=== PATIENT | female | born 1990 | race Caucasian/White ===

== ENCOUNTER 2016-11-26 00:08 | Emergency (ER) | payer MEDICAID, OTHER ==
[~2016-11-26] VITALS: Ht 170.2 cm; Wt 131.5 kg
[~2016-11-26 00:08] MED LIST: BUPR150SR PO; RISP2 PO
[2016-11-26 00:50] LABS: APPEARANCE,URINE CLOUDY (CLEAR); GLUCOSE, URINE (UA) NEGATIVE (NEGATIVE); KETONES,URINE NEGATIVE (NEGATIVE); LEUKOCYTE ESTERASE ,URINE SMALL (NEGATIVE); OCCULT BLOOD,URINE NEGATIVE (NEGATIVE); PROTEIN,URINE NEGATIVE (NEGATIVE)
[2016-11-26 00:54] LABS: RBC,URINE 0-2 /HPF (0-2); SQUAMOUS EPITHELIAL CELL,UR Moderate /LPF (None Seen)
[2016-11-26 02:34] VITALS: BP 110/68
[2016-11-26] MEDS ORDERED: CefTRIAXone SODIUM 1 GM/VIAL IM ONE (02:45)
[2016-11-26] MEDS ORDERED: LIDOCAINE HCL/PF 1% 2 ML VIAL IM ONE (02:45)
[2016-11-26] MEDS ORDERED: AZITHROMYCIN 250 MG TABLET PO ONE (02:45)
== END 2016-11-26 03:05 | disposition home or self-care (01) ==
LOC: EMS 00:09
DX: N39.0 Urinary tract infection, site not specified (principal); N76.0 Acute vaginitis; J45.909 Unspecified asthma, uncomplicated; F12.90 Cannabis use, unspecified, uncomplicated; F15.90 Other stimulant use, unspecified, uncomplicated; F19.90 Other psychoactive substance use, unspecified, uncomplicated; Z87.891 Personal history of nicotine dependence; Z88.8 Allergy status to other drugs, medicaments and biological substances; Z88.6 Allergy status to analgesic agent
CPT/HCPCS: 81001; 84703; 87077; 87086; 87186; 96372; 99284; J0696; J3490; 99283

== ENCOUNTER 2016-12-27 01:01 | Emergency (ER) | payer OTHER ==
[~2016-12-27] VITALS: Ht 170.2 cm; Wt 134.6 kg
[2016-12-27 01:03] VITALS: BP 122/77
== END 2016-12-27 01:50 | disposition left against medical advice (07) ==
LOC: EMS 01:02
DX: J45.901 Unspecified asthma with (acute) exacerbation (principal); F12.90 Cannabis use, unspecified, uncomplicated; F15.90 Other stimulant use, unspecified, uncomplicated; Z87.891 Personal history of nicotine dependence; Z53.21 Procedure and treatment not carried out due to patient leaving prior to being seen by health care provider

== ENCOUNTER 2016-12-29 15:54 | Inpatient (IN) | payer MEDICAID, OTHER ==
[~2016-12-29] VITALS: Ht 170.2 cm; Wt 134.9 kg
[2016-12-29] MEDS ORDERED: [UNRECOGNIZED DRUG - CODE] PO (16:18)
[2016-12-29] MEDS ORDERED: BUSP10TA23 PO (16:18)
[2016-12-29] MEDS ORDERED: BREX1TAB PO (16:18)
[2016-12-29] MEDS ORDERED: SODIUM CHLORIDE 0.9% 1,000 ML IV ONE (16:30)
[2016-12-29 16:54] LABS: BASOPHILS % (AUTO) 0.4 % (0.0-2.0); EOSINOPHILS % (AUTO) 2.5 % (1.0-6.0); HEMOGLOBIN 12.3 g/dL (12.0-16.0); LYMPHOCYTES # (AUTO) 1.5 K/uL (1.0-4.8); LYMPHOCYTES % (AUTO) 18.7 % (22.0-44.0); MEAN CORPUSCULAR HEMOGLOBIN 27.4 pg (26.0-34.0); MEAN CORPUSCULAR HGB CONC 34.1 G/dL (31.0-37.0); MEAN CORPUSCULAR VOLUME 80 fL (80-100); MONOCYTES # (AUTO) 0.8 K/uL (0.1-1.0); MONOCYTES % (AUTO) 10.2 % (2.0-9.0); NEUTROPHILS # (AUTO) 5.6 K/uL (1.8-7.7); NEUTROPHILS % (AUTO) 68.2 % (40.0-70.0); PLATELET COUNT (AUTO) 174 K/uL (150-450); RED BLOOD CELL COUNT(AUTO) 4.48 MIL/uL (4.00-5.20); RED CELL DISTRIBUTION WIDTH 15.7 % (11.5-14.5); WHITE BLOOD COUNT (AUTO) 8.1 K/uL (4.5-11.0)
[2016-12-29 17:06] LABS: ANION GAP 7 mmol/L (8-16); CALCIUM, TOTAL 8.6 mg/dL (8.8-10.5); CARBON DIOXIDE 26 mmol/L (22-29); CHLORIDE 106 mmol/L (98-107); CREATININE 1.24 mg/dL (0.60-1.30); GLOMERULAR FILTR. RATE CALC 52 mL/min (>60); POTASSIUM 3.9 mmol/L (3.5-5.1); SODIUM SERUM 139 mmol/L (136-145); UREA NITROGEN, BLOOD 17 mg/dL (7-18)
[2016-12-29 17:12] LABS: ALANINE AMINOTRANSFERASE 36 U/L (12-78); ALBUMIN 3.5 g/dL (3.4-5.0); ASPARTATE AMINOTRANSFERASE 21 U/L (15-37); BILIRUBIN,TOTAL 0.3 mg/dL (0.1-1.0); TOTAL PROTEIN, SERUM 6.9 g/dL (6.4-8.2)
[2016-12-29 17:23] LABS: SALICYLATE < 2.8 mg/dL (2.8-20.0)
[2016-12-29 17:26] LABS: ACETAMINOPHEN < 2 mcg/mL (10-30)
[2016-12-29] MEDS ORDERED: HALOPERIDOL 5 MG TABLET PO PRN (19:15)
[2016-12-29 19:23] LABS: APPEARANCE,URINE CLEAR (CLEAR); GLUCOSE, URINE (UA) NEGATIVE (NEGATIVE); KETONES,URINE NEGATIVE (NEGATIVE); LEUKOCYTE ESTERASE ,URINE NEGATIVE (NEGATIVE); OCCULT BLOOD,URINE NEGATIVE (NEGATIVE); PROTEIN,URINE NEGATIVE (NEGATIVE)
[2016-12-29 19:24] LABS: ADD UA MICROSCOPIC NO
[2016-12-29] MEDS ORDERED: ALBUTEROL SULFATE 5 MG/ML 20 ML NEB SOLN [BULK] NEB ONE (21:30)
[2016-12-29] MEDS ORDERED: IPRATROPIUM BROMIDE 0.5 MG/2.5 ML NEB SOLUTION NEB ONE (21:30)
[2016-12-29] MEDS ORDERED: 0.9% SODIUM CHLORIDE 5 ML NEB SOLUTION NEB ONE (21:33)
[2016-12-30] MEDS: ZOLPIDEM TARTRATE 10 MG TABLET PO PRN ×2 (00:04→21:56)
[2016-12-30 00:13] VITALS: BP 115/72
[2016-12-30 08:49] LABS: CHOL/HDL RATIO 3.8 (3.9-5.7); THYROID STIMULATING HORMONE 2.75 uIU/mL (0.36-3.74)
[2016-12-30 08:59] VITALS: BP 117/61
[2016-12-30] MEDS: LORazepam 2 MG TABLET PO PRN ×2 (16:15→20:30)
[2016-12-30 16:55] VITALS: BP 127/87
[2016-12-30] MEDS: OLANZapine 5 MG TABLET PO SCH (20:29)
[2016-12-31 02:42] VITALS: BP 122/88
[2016-12-31] MEDS: LORazepam 2 MG TABLET PO PRN ×3 (02:43→22:43)
[2016-12-31] MEDS: FLUoxetine HCL 20 MG CAPSULE PO SCH (08:45)
[2016-12-31] MEDS: FLUTICASONE/VILANTEROL 100-25 MCG/INH INHALER [14] IH SCH (08:45)
[2016-12-31 09:13] VITALS: BP 110/68
[2016-12-31] MEDS ORDERED: ALBUTEROL SULFATE HFA 90 MCG/PUFF 8 GM INHALER IH PRN (10:45)
[2016-12-31 16:18] VITALS: BP 121/72
[2016-12-31] MEDS: OLANZapine 5 MG TABLET PO SCH (20:28)
[2016-12-31] MEDS: ZOLPIDEM TARTRATE 10 MG TABLET PO PRN (20:28)
[2017-01-01 01:06] VITALS: BP 99/60
[2017-01-01 02:50] VITALS: BP 117/78
[2017-01-01] MEDS: LORazepam 2 MG TABLET PO PRN ×2 (03:06→11:40)
[2017-01-01 08:19] VITALS: BP 114/78
[2017-01-01] MEDS: FLUoxetine HCL 20 MG CAPSULE PO SCH (09:00)
[2017-01-01] MEDS: FLUTICASONE/VILANTEROL 100-25 MCG/INH INHALER [14] IH SCH (09:01)
[2017-01-01] MEDS ORDERED: FLUO-191 PO (13:24)
[2017-01-01] MEDS ORDERED: FLUT1AER IH (13:24)
[2017-01-01] MEDS ORDERED: OLAN5TAB2 PO (13:24)
== END 2017-01-01 20:50 | disposition home or self-care (01) | DRG 751 ==
LOC: SDS 15:55 → B2S 21:47
PROVIDERS: ADMIT Psychiatry & Neurology Child & Adolescent Psychiatry; ATTEND Psychiatry & Neurology Child & Adolescent Psychiatry
DX: F33.2 Major depressive disorder, recurrent severe without psychotic features (principal); R45.851 Suicidal ideations; F12.90 Cannabis use, unspecified, uncomplicated; J45.909 Unspecified asthma, uncomplicated; F15.90 Other stimulant use, unspecified, uncomplicated; F60.3 Borderline personality disorder; R45.87 Impulsiveness; F19.10 Other psychoactive substance abuse, uncomplicated; Z79.899 Other long term (current) drug therapy; Z90.89 Acquired absence of other organs; Z87.891 Personal history of nicotine dependence; Z88.8 Allergy status to other drugs, medicaments and biological substances; Z83.3 Family history of diabetes mellitus; Z81.8 Family history of other mental and behavioral disorders
CPT/HCPCS: 84436; 84439; 84443; 93005; 94640; 96360; 96361; 99285; G0480; G0481; J3535

== ENCOUNTER 2017-05-09 06:59 | Inpatient (IN) | payer MEDICAID, OTHER ==
[~2017-05-09] VITALS: Ht 166.4 cm; Wt 138.3 kg
[~2017-05-09 06:59] MED LIST changes: -BUPR150SR PO; +FLUO-191 PO; -RISP2 PO
[2017-05-09] MEDS ORDERED: BUPR75 PO (07:03)
[2017-05-09] MEDS ORDERED: TRAZ-144 PO (07:03)
[2017-05-09] MEDS ORDERED: BUPR-93 PO (07:06)
[2017-05-09] MEDS ORDERED: TRAZ-147 PO (07:06)
[2017-05-09] MEDS ORDERED: LORazepam 2 MG/ML VIAL ONE (07:21)
[2017-05-09] MEDS ORDERED: SUCCINYLCHOLINE CHLORIDE 20 MG/ML 10 ML VIAL ONE (07:21)
[2017-05-09] MEDS ORDERED: RAPID SEQUENCE KIT [RSI] 1 EACH KIT ONE ×2 (07:21)
[2017-05-09] MEDS ORDERED: SODIUM CHLORIDE 0.9% 1,000 ML IV ONE ×3 (07:30→10:00)
[2017-05-09] MEDS ORDERED: LORazepam 2 MG/ML VIAL IVP ONE (07:30)
[2017-05-09 07:32] LABS: GLUCOSE COMMENT 1 Doctor Notified; GLUCOSE,POINT OF CARE 118 MG/DL (70-110)
[2017-05-09 07:36] LABS: BASOPHILS % (AUTO) 0.4 % (0.0-2.0); EOSINOPHILS % (AUTO) 0.4 % (1.0-6.0); HEMATOCRIT 38.3 % (36-46); HEMOGLOBIN 12.9 g/dL (12.0-16.0); LYMPHOCYTES # (AUTO) 2.4 K/uL (1.0-4.8); LYMPHOCYTES % (AUTO) 21.4 % (22.0-44.0); MEAN CORPUSCULAR HEMOGLOBIN 28.4 pg (26.0-34.0); MEAN CORPUSCULAR HGB CONC 33.7 G/dL (31.0-37.0); MEAN CORPUSCULAR VOLUME 84 fL (80-100); MONOCYTES # (AUTO) 1.4 K/uL (0.1-1.0); MONOCYTES % (AUTO) 12.7 % (2.0-9.0); NEUTROPHILS # (AUTO) 7.4 K/uL (1.8-7.7); NEUTROPHILS % (AUTO) 65.1 % (40.0-70.0); PLATELET COUNT (AUTO) 226 K/uL (150-450); RED BLOOD CELL COUNT(AUTO) 4.55 MIL/uL (4.00-5.20); RED CELL DISTRIBUTION WIDTH 13.7 % (11.5-14.5); WHITE BLOOD COUNT (AUTO) 11.3 K/uL (4.5-11.0)
[2017-05-09 07:45] LABS: ANION GAP 20 mmol/L (8-16); CALCIUM, TOTAL 9.7 mg/dL (8.8-10.5); CARBON DIOXIDE 21 mmol/L (22-29); CHLORIDE 108 mmol/L (98-107); CREATININE 1.39 mg/dL (0.60-1.30); GLOMERULAR FILTR. RATE CALC 45 mL/min (>60); POTASSIUM 3.6 mmol/L (3.5-5.1); SODIUM SERUM 149 mmol/L (136-145); UREA NITROGEN, BLOOD 16 mg/dL (7-18)
[2017-05-09 07:51] LABS: ALANINE AMINOTRANSFERASE 34 U/L (12-78); ALBUMIN 4.2 g/dL (3.4-5.0); ASPARTATE AMINOTRANSFERASE 30 U/L (15-37); BILIRUBIN,TOTAL 0.4 mg/dL (0.1-1.0); TOTAL PROTEIN, SERUM 8.5 g/dL (6.4-8.2)
[2017-05-09 07:52] LABS: SALICYLATE < 2.8 mg/dL (2.8-20.0)
[2017-05-09 08:02] LABS: ACETAMINOPHEN < 2 mcg/mL (10-30)
[2017-05-09 09:27] LABS: APPEARANCE,URINE CLEAR (CLEAR); GLUCOSE, URINE (UA) NEGATIVE (NEGATIVE); KETONES,URINE NEGATIVE (NEGATIVE); LEUKOCYTE ESTERASE ,URINE NEGATIVE (NEGATIVE); OCCULT BLOOD,URINE NEGATIVE (NEGATIVE); PH,URINE 5.5 (5.0-8.0); PROTEIN,URINE NEGATIVE (NEGATIVE)
[2017-05-09 09:31] LABS: RBC,URINE None Seen /HPF (0-2)
[2017-05-09 09:32] LABS: SQUAMOUS EPITHELIAL CELL,UR Few /LPF (None Seen); WBC,URINE 0-2 /HPF (0-5)
[2017-05-09] MEDS ORDERED: ONDANSETRON HCL 4 MG/2 ML VIAL IVP PRN ×2 (10:00→10:30)
[2017-05-09] MEDS ORDERED: 0.9% SODIUM CHLORIDE 10 ML SYRINGE IVP PRN (10:00)
[2017-05-09] MEDS ORDERED: ACETAMINOPHEN 325 MG TABLET PO PRN ×2 (10:00→10:30)
[2017-05-09] MEDS ORDERED: MAGNESIUM HYDROXIDE SUSPENSION 30 ML UDCUP PO PRN (10:30)
[2017-05-09] MEDS ORDERED: MORPHINE SULFATE 2 MG/ML SYRINGE IVP PRN (10:30)
[2017-05-09] MEDS ORDERED: HYDROCODONE/ACETAMINOPHEN 5-325 MG TABLET PO PRN (10:30)
[2017-05-09] MEDS ORDERED: BISACODYL 10 MG RECTAL RECTAL SUPPOSITORY PR PRN (10:30)
[2017-05-09] MEDS ORDERED: LORazepam 2 MG/ML VIAL IM PRN (10:30)
[2017-05-09] MEDS ORDERED: MAGNESIUM SULFATE 2 GM, MVI, ADULT NO.1 WITH VIT K 10 ML, THIAMINE HCL 100 MG, FOLIC AC... IV ONE ×5 (10:30)
[2017-05-09 12:57] VITALS: BP 106/60
[2017-05-09] MEDS ORDERED: PNEUMOCOCCAL VACCINE POLYVALENT 0.5 ML VIAL [PPSV23] IM ONE (13:30)
[2017-05-09] MEDS ORDERED: INFLUENZA VIRUS VACCINE QVS 2017-18 (3YR+)/PF 60 MCG/0.5 ML SYRINGE IM ONE (13:30)
[2017-05-09] MEDS: HEPARIN SODIUM,PORCINE 5,000 UNITS/ML VIAL SQ SCH ×2 (15:10→23:41)
[2017-05-09 15:56] VITALS: BP 101/62
[2017-05-09 19:52] LABS: GLUCOSE,POINT OF CARE 111 MG/DL (70-110)
[2017-05-09 20:10] VITALS: BP 105/55
[2017-05-09] MEDS: ZOLPIDEM TARTRATE 5 MG TABLET PO PRN (21:11)
[2017-05-09] MEDS: DOCUSATE SODIUM 100 MG CAPSULE PO SCH (21:11)
[2017-05-10] VITALS (7 sets, daily range): BP systolic 106–122; BP diastolic 52–72
[2017-05-10 05:55] LABS: BASOPHILS % (AUTO) 0.2 % (0.0-2.0); EOSINOPHILS % (AUTO) 0.4 % (1.0-6.0); HEMATOCRIT 32.3 % (36-46); LYMPHOCYTES # (AUTO) 1.4 K/uL (1.0-4.8); LYMPHOCYTES % (AUTO) 18.3 % (22.0-44.0); MEAN CORPUSCULAR HEMOGLOBIN 28.5 pg (26.0-34.0); MEAN CORPUSCULAR VOLUME 84 fL (80-100); MONOCYTES # (AUTO) 0.8 K/uL (0.1-1.0); MONOCYTES % (AUTO) 9.9 % (2.0-9.0); NEUTROPHILS # (AUTO) 5.5 K/uL (1.8-7.7); NEUTROPHILS % (AUTO) 71.2 % (40.0-70.0); PLATELET COUNT (AUTO) 184 K/uL (150-450); RED BLOOD CELL COUNT(AUTO) 3.86 MIL/uL (4.00-5.20); RED CELL DISTRIBUTION WIDTH 13.6 % (11.5-14.5); WHITE BLOOD COUNT (AUTO) 7.8 K/uL (4.5-11.0)
[2017-05-10 05:57] LABS: ANION GAP 7 mmol/L (8-16); CALCIUM, TOTAL 8.1 mg/dL (8.8-10.5); CARBON DIOXIDE 24 mmol/L (22-29); CHLORIDE 108 mmol/L (98-107); CREATININE 0.95 mg/dL (0.60-1.30); GLOMERULAR FILTR. RATE CALC > 60 mL/min (>60); POTASSIUM 3.5 mmol/L (3.5-5.1); SODIUM SERUM 139 mmol/L (136-145); UREA NITROGEN, BLOOD 9 mg/dL (7-18)
[2017-05-10] MEDS: DOCUSATE SODIUM 100 MG CAPSULE PO SCH ×2 (07:48→20:56)
[2017-05-10] MEDS: PANTOPRAZOLE SODIUM 40 MG DR TABLET PO SCH (07:48)
[2017-05-10] MEDS: HEPARIN SODIUM,PORCINE 5,000 UNITS/ML VIAL SQ SCH ×3 (07:50→23:37)
[2017-05-10] MEDS: ZOLPIDEM TARTRATE 5 MG TABLET PO PRN (20:56)
[2017-05-11 03:28] VITALS: BP 110/57
[2017-05-11 06:36] LABS: BASOPHILS % (AUTO) 0.4 % (0.0-2.0); EOSINOPHILS % (AUTO) 1.3 % (1.0-6.0); HEMATOCRIT 32.6 % (36-46); LYMPHOCYTES # (AUTO) 1.6 K/uL (1.0-4.8); LYMPHOCYTES % (AUTO) 21.2 % (22.0-44.0); MEAN CORPUSCULAR HEMOGLOBIN 28.4 pg (26.0-34.0); MEAN CORPUSCULAR HGB CONC 33.7 G/dL (31.0-37.0); MEAN CORPUSCULAR VOLUME 84 fL (80-100); MONOCYTES # (AUTO) 0.8 K/uL (0.1-1.0); MONOCYTES % (AUTO) 10.4 % (2.0-9.0); NEUTROPHILS # (AUTO) 5.1 K/uL (1.8-7.7); NEUTROPHILS % (AUTO) 66.7 % (40.0-70.0); PLATELET COUNT (AUTO) 171 K/uL (150-450); RED BLOOD CELL COUNT(AUTO) 3.87 MIL/uL (4.00-5.20); RED CELL DISTRIBUTION WIDTH 13.5 % (11.5-14.5); WHITE BLOOD COUNT (AUTO) 7.7 K/uL (4.5-11.0)
[2017-05-11 07:03] LABS: CALCIUM, TOTAL 8.4 mg/dL (8.8-10.5); CREATININE 1.12 mg/dL (0.60-1.30); POTASSIUM 3.9 mmol/L (3.5-5.1)
[2017-05-11 07:39] VITALS: BP 105/72
[2017-05-11] MEDS: DOCUSATE SODIUM 100 MG CAPSULE PO SCH ×2 (07:53→20:45)
[2017-05-11] MEDS: HEPARIN SODIUM,PORCINE 5,000 UNITS/ML VIAL SQ SCH ×2 (07:53→16:00)
[2017-05-11] MEDS: PANTOPRAZOLE SODIUM 40 MG DR TABLET PO SCH (07:53)
[2017-05-11 11:27] VITALS: BP 111/68
[2017-05-11 16:24] VITALS: BP 122/73
[2017-05-11 19:39] VITALS: BP 121/71
[2017-05-11] MEDS: ZOLPIDEM TARTRATE 5 MG TABLET PO PRN (20:45)
[2017-05-12 00:22] VITALS: BP 122/71
[2017-05-12 05:51] VITALS: BP 121/71
[2017-05-12 06:40] LABS: BASOPHILS # (AUTO) 0.02 K/uL (0.00-0.20); BASOPHILS % (AUTO) 0.4 % (0.0-2.0); EOSINOPHILS # (AUTO) 0.11 K/uL (0.00-0.70); EOSINOPHILS % (AUTO) 1.74 % (1.0-6.0); HEMATOCRIT 34.1 % (36-46); HEMOGLOBIN 11.6 g/dL (12.0-16.0); LYMPHOCYTES # (AUTO) 1.2 K/uL (1.0-4.8); LYMPHOCYTES % (AUTO) 18.1 % (22.0-44.0); MEAN CORPUSCULAR HEMOGLOBIN 28.5 pg (26.0-34.0); MEAN CORPUSCULAR VOLUME 84 fL (80-100); MONOCYTES # (AUTO) 0.8 K/uL (0.1-1.0); MONOCYTES % (AUTO) 12.3 % (2.0-9.0); NEUTROPHILS # (AUTO) 4.4 K/uL (1.8-7.7); NEUTROPHILS % (AUTO) 67.6 % (40.0-70.0); PLATELET COUNT (AUTO) 193 K/uL (150-450); RED BLOOD CELL COUNT(AUTO) 4.08 MIL/uL (4.00-5.20); RED CELL DISTRIBUTION WIDTH 13.9 % (11.5-14.5); WHITE BLOOD COUNT (AUTO) 6.5 K/uL (4.5-11.0)
[2017-05-12 06:49] LABS: ANION GAP 10 mmol/L (8-16); CALCIUM, TOTAL 8.8 mg/dL (8.8-10.5); CARBON DIOXIDE 26 mmol/L (22-29); CHLORIDE 104 mmol/L (98-107); CREATININE 1.04 mg/dL (0.60-1.30); GLOMERULAR FILTR. RATE CALC > 60 mL/min (>60); POTASSIUM 3.9 mmol/L (3.5-5.1); SODIUM SERUM 140 mmol/L (136-145); UREA NITROGEN, BLOOD 12 mg/dL (7-18)
[2017-05-12 07:16] VITALS: BP 114/68
[2017-05-12] MEDS: PANTOPRAZOLE SODIUM 40 MG DR TABLET PO SCH (08:16)
[2017-05-12] MEDS: DOCUSATE SODIUM 100 MG CAPSULE PO SCH (08:16)
[2017-05-12] MEDS: HEPARIN SODIUM,PORCINE 5,000 UNITS/ML VIAL SQ SCH ×2 (08:19)
[2017-05-12] MEDS ORDERED: INFLUENZA VIRUS VACCINE QVS 2017-18 (3YR+)/PF 60 MCG/0.5 ML SYRINGE IM ONE (10:45)
[2017-05-12] MEDS ORDERED: BUPR-93 PO (11:04)
[2017-05-12 11:46] VITALS: BP 131/71
[2017-05-13] MEDS ORDERED: BuPROPion HCL XL 150 MG ER TABLET PO SCH (09:00)
== END 2017-05-12 12:00 | disposition home or self-care (01) | DRG 812 ==
LOC: EMS 06:59 → 5N 10:00 → 6N 05-11 18:20
PROVIDERS: ADMIT Internal Medicine; ATTEND Internal Medicine
DX: T43.292A Poisoning by other antidepressants, intentional self-harm, initial encounter (principal); N17.0 Acute kidney failure with tubular necrosis; G92 Toxic encephalopathy; E87.0 Hyperosmolality and hypernatremia; F19.10 Other psychoactive substance abuse, uncomplicated; Z88.5 Allergy status to narcotic agent; Z88.8 Allergy status to other drugs, medicaments and biological substances; F20.9 Schizophrenia, unspecified; F31.9 Bipolar disorder, unspecified; J45.909 Unspecified asthma, uncomplicated; Y92.89 Other specified places as the place of occurrence of the external cause; Z28.21 Immunization not carried out because of patient refusal
CPT/HCPCS: 70450; 82948; 82962; 83735; 90471; 93005; 96361; 96374; 99285; G0480; G0481; J0330; J1644; J2060; J2405; J3411; J3475; J3490; J7030

== ENCOUNTER 2017-12-27 00:30 | Inpatient (IN) | payer MEDICAID, OTHER ==
[~2017-12-27] VITALS: Ht 170.2 cm; Wt 127.9 kg
[~2017-12-27 00:30] MED LIST changes: +BUPR-93 PO; -FLUO-191 PO
[2017-12-27] MEDS ORDERED: ARIP300S3 IM (01:05)
[2017-12-27] MEDS ORDERED: FLUO40CA7 PO (01:05)
[2017-12-27] MEDS ORDERED: LORazepam 1 MG TABLET PO ONE (01:30)
[2017-12-27] MEDS ORDERED: DiphenhydrAMINE HCL 25 MG CAPSULE PO ONE (01:30)
[2017-12-27] MEDS ORDERED: HALOPERIDOL 5 MG TABLET PO ONE (01:30)
[2017-12-27 01:38] LABS: BASOPHILS % (AUTO) 0.4 % (0.0-2.0); EOSINOPHILS % (AUTO) 0.2 % (1.0-6.0); HEMATOCRIT 37.5 % (36-46); HEMOGLOBIN 13.2 g/dL (12.0-16.0); LYMPHOCYTES % (AUTO) 19.7 % (22.0-44.0); MEAN CORPUSCULAR HEMOGLOBIN 28.6 pg (26.0-34.0); MEAN CORPUSCULAR HGB CONC 35.2 G/dL (31.0-37.0); MEAN CORPUSCULAR VOLUME 81 fL (80-100); MONOCYTES # (AUTO) 0.9 K/uL (0.1-1.0); MONOCYTES % (AUTO) 9.3 % (2.0-9.0); NEUTROPHILS # (AUTO) 7.1 K/uL (1.8-7.7); NEUTROPHILS % (AUTO) 70.4 % (40.0-70.0); PLATELET COUNT (AUTO) 205 K/uL (150-450); RED BLOOD CELL COUNT(AUTO) 4.61 MIL/uL (4.00-5.20); RED CELL DISTRIBUTION WIDTH 13.8 % (11.5-14.5)
[2017-12-27 01:53] LABS: ANION GAP 10 mmol/L (8-16); CALCIUM, TOTAL 9.1 mg/dL (8.8-10.5); CARBON DIOXIDE 26 mmol/L (22-29); CHLORIDE 103 mmol/L (98-107); CREATININE 0.98 mg/dL (0.60-1.30); GLOMERULAR FILTR. RATE CALC > 60 mL/min (>60); GLUCOSE,RANDOM 92 mg/dL (70-110); POTASSIUM 3.5 mmol/L (3.5-5.1); SODIUM SERUM 139 mmol/L (136-145); UREA NITROGEN, BLOOD 10 mg/dL (7-18)
[2017-12-27 01:59] LABS: ALANINE AMINOTRANSFERASE 33 U/L (12-78); ALBUMIN 4.1 g/dL (3.4-5.0); ALKALINE PHOSPHATASE 76 U/L (46-116); ASPARTATE AMINOTRANSFERASE 31 U/L (15-37); BILIRUBIN,TOTAL 0.5 mg/dL (0.1-1.0); TOTAL PROTEIN, SERUM 8.2 g/dL (6.4-8.2)
[2017-12-27 03:22] LABS: AMPHET/METH SCREEN,URINE POSITIVE (NEGATIVE); BARBITURATE SCREEN, URINE NEGATIVE (NEGATIVE); BENZODIAZEPINES SCREEN,URINE NEGATIVE (NEGATIVE); CANNABINOID SCREEN,URINE POSITIVE (NEGATIVE); COCAINE SCREEN,URINE NEGATIVE (NEGATIVE); METHADONE SCREEN, URINE NEGATIVE (NEGATIVE); OPIATE SCREEN,URINE NEGATIVE (NEGATIVE); PHENCYCLIDINE SCREEN,URINE NEGATIVE (NEGATIVE)
[2017-12-27 03:33] LABS: APPEARANCE,URINE CLEAR (CLEAR); BILIRUBIN,URINE NEGATIVE (NEGATIVE); GLUCOSE, URINE (UA) NEGATIVE (NEGATIVE); KETONES,URINE NEGATIVE (NEGATIVE); LEUKOCYTE ESTERASE ,URINE NEGATIVE (NEGATIVE); NITRATE,URINE NEGATIVE (NEGATIVE); OCCULT BLOOD,URINE NEGATIVE (NEGATIVE); PH,URINE 5.5 (5.0-8.0); PROTEIN,URINE NEGATIVE (NEGATIVE); UROBILINOGEN,URINE 0.2 mg/dL (<=1.0)
[2017-12-27] MEDS: ZOLPIDEM TARTRATE 10 MG TABLET PO PRN ×2 (04:18→21:01)
[2017-12-27] MEDS ORDERED: ALBUTEROL SULFATE HFA 90 MCG/PUFF 8 GM INHALER IH PRN (06:30)
[2017-12-27 08:44] VITALS: BP 118/63
[2017-12-27] MEDS: LORazepam 2 MG TABLET PO PRN ×2 (09:26→16:09)
[2017-12-27] MEDS ORDERED: ACETAMINOPHEN 325 MG TABLET PO PRN (17:45)
[2017-12-27] MEDS ORDERED: MAGNESIUM HYDROXIDE SUSPENSION 30 ML UDCUP PO PRN (17:45)
[2017-12-27] MEDS ORDERED: ONDANSETRON HCL 4 MG TABLET PO PRN (17:45)
[2017-12-27] MEDS ORDERED: DOCUSATE SODIUM 100 MG CAPSULE PO PRN (17:45)
[2017-12-27] MEDS ORDERED: MAG HYDROX/AL HYDROX/SIMETH ES 30 ML SUSPENSION UDCUP PO PRN (17:45)
[2017-12-27] MEDS ORDERED: IBUPROFEN 400 MG TABLET PO PRN (17:45)
[2017-12-27] MEDS ORDERED: PETROLATUM,WHITE 71 GM JELLY TP PRN (17:45)
[2017-12-27 17:50] VITALS: BP 129/84
[2017-12-27] MEDS: HALOPERIDOL 5 MG TABLET PO PRN (18:07)
[2017-12-28 02:37] VITALS: BP 125/86
[2017-12-28 08:17] VITALS: BP 131/89
[2017-12-28 08:26] LABS: HEMOGLOBIN A1C 5.6 % (4.5-6.2)
[2017-12-28 08:50] LABS: CHOL/HDL RATIO 2.8 (3.9-5.7); FREE T4 (FREE THYROXINE) 0.95 ng/dL (0.76-1.46); THYROID STIMULATING HORMONE 2.38 uIU/mL (0.36-3.74)
[2017-12-28] MEDS: FLUoxetine HCL 20 MG CAPSULE PO SCH (10:35)
[2017-12-28] MEDS: LORazepam 2 MG TABLET PO PRN ×2 (13:32→20:10)
[2017-12-28 16:55] VITALS: BP 121/62
[2017-12-28] MEDS: ZOLPIDEM TARTRATE 10 MG TABLET PO PRN (20:10)
[2017-12-29] MEDS: HALOPERIDOL 5 MG TABLET PO PRN ×2 (00:48→19:34)
[2017-12-29] MEDS: LORazepam 2 MG TABLET PO PRN ×4 (00:48→22:03)
[2017-12-29 00:50] VITALS: BP 132/100
[2017-12-29 08:13] VITALS: BP 122/75
[2017-12-29] MEDS: FLUoxetine HCL 20 MG CAPSULE PO SCH (08:41)
[2017-12-29 16:05] VITALS: BP 129/80
[2017-12-29] MEDS: ZOLPIDEM TARTRATE 10 MG TABLET PO PRN (22:35)
[2017-12-30 05:37] VITALS: BP 127/74
[2017-12-30 08:08] VITALS: BP 118/70
[2017-12-30] MEDS: FLUoxetine HCL 20 MG CAPSULE PO SCH (08:38)
== END 2017-12-30 11:15 | disposition home or self-care (01) | DRG 750 ==
LOC: EMS 00:32 → B3A 02:00
PROVIDERS: ADMIT Psychiatry & Neurology Psychiatry; ATTEND Psychiatry & Neurology Psychiatry
DX: F25.9 Schizoaffective disorder, unspecified (principal); R45.851 Suicidal ideations; F06.4 Anxiety disorder due to known physiological condition; F10.10 Alcohol abuse, uncomplicated; F12.90 Cannabis use, unspecified, uncomplicated; F31.9 Bipolar disorder, unspecified; G47.00 Insomnia, unspecified; J45.909 Unspecified asthma, uncomplicated; Z88.8 Allergy status to other drugs, medicaments and biological substances; Z79.899 Other long term (current) drug therapy; Z71.51 Drug abuse counseling and surveillance of drug abuser; Z71.41 Alcohol abuse counseling and surveillance of alcoholic
CPT/HCPCS: 83036; 84439; 84443; 99285; G0480; J3535

== ENCOUNTER 2018-04-07 21:30 | Emergency (ER) | payer MEDICAID, OTHER ==
[~2018-04-07] VITALS: Ht 170.2 cm; Wt 134.1 kg
[~2018-04-07 21:30] MED LIST changes: -BUPR-93 PO; +FLUO40CA7 PO
[2018-04-07] MEDS ORDERED: BECL10.62 IH (21:42)
[2018-04-07] MEDS ORDERED: ALBU8HFA IH (21:42)
[2018-04-07] MEDS ORDERED: PROZ10 PO (21:42)
[2018-04-07] MEDS ORDERED: ARIP400S3 IM (21:42)
[2018-04-07 23:11] VITALS: BP 132/88
== END 2018-04-07 23:37 | disposition home or self-care (01) ==
LOC: EMS 21:31
DX: J45.909 Unspecified asthma, uncomplicated (principal); F31.9 Bipolar disorder, unspecified; F20.9 Schizophrenia, unspecified; F12.90 Cannabis use, unspecified, uncomplicated; F15.90 Other stimulant use, unspecified, uncomplicated; Z87.891 Personal history of nicotine dependence; Z79.899 Other long term (current) drug therapy; Z88.8 Allergy status to other drugs, medicaments and biological substances
CPT/HCPCS: 99283

== ENCOUNTER 2018-04-08 23:26 | Emergency (ER) | payer OTHER ==
[~2018-04-08] VITALS: Ht 170.2 cm; Wt 134.1 kg
[~2018-04-08 23:26] MED LIST changes: +ALBU8HFA IH; +ARIP400S3 IM; +BECL10.62 IH; +PROZ10 PO
[2018-04-09 00:29] LABS: BASOPHILS % (AUTO) 0.6 % (0.0-2.0); EOSINOPHILS % (AUTO) 1.2 % (1.0-6.0); HEMATOCRIT 36.2 % (36-46); HEMOGLOBIN 12.4 g/dL (12.0-16.0); LYMPHOCYTES # (AUTO) 1.8 K/uL (1.0-4.8); LYMPHOCYTES % (AUTO) 17.5 % (22.0-44.0); MEAN CORPUSCULAR HEMOGLOBIN 28.3 pg (26.0-34.0); MEAN CORPUSCULAR HGB CONC 34.3 G/dL (31.0-37.0); MEAN CORPUSCULAR VOLUME 83 fL (80-100); MONOCYTES # (AUTO) 0.9 K/uL (0.1-1.0); MONOCYTES % (AUTO) 8.9 % (2.0-9.0); NEUTROPHILS # (AUTO) 7.2 K/uL (1.8-7.7); NEUTROPHILS % (AUTO) 71.8 % (40.0-70.0); PLATELET COUNT (AUTO) 243 K/uL (150-450); RED BLOOD CELL COUNT(AUTO) 4.38 MIL/uL (4.00-5.20); RED CELL DISTRIBUTION WIDTH 13.8 % (11.5-14.5)
[2018-04-09 00:39] LABS: ANION GAP 6 mmol/L (8-16); CALCIUM, TOTAL 9.1 mg/dL (8.8-10.5); CARBON DIOXIDE 28 mmol/L (22-29); CHLORIDE 105 mmol/L (98-107); CREATININE 0.99 mg/dL (0.60-1.30); GLOMERULAR FILTR. RATE CALC > 60 mL/min (>60); GLUCOSE,RANDOM 106 mg/dL (70-110); POTASSIUM 3.9 mmol/L (3.5-5.1); SODIUM SERUM 139 mmol/L (136-145); UREA NITROGEN, BLOOD 12 mg/dL (7-18)
[2018-04-09 00:42] VITALS: BP 130/89
[2018-04-09] MEDS ORDERED: LORazepam 2 MG TABLET PO ONE (00:45)
[2018-04-09] MEDS ORDERED: HALOPERIDOL 5 MG TABLET PO ONE (00:45)
[2018-04-09 00:46] LABS: ALANINE AMINOTRANSFERASE 32 U/L (12-78); ALBUMIN 3.6 g/dL (3.4-5.0); ALKALINE PHOSPHATASE 67 U/L (46-116); ASPARTATE AMINOTRANSFERASE 19 U/L (15-37); BILIRUBIN,TOTAL 0.5 mg/dL (0.1-1.0); TOTAL PROTEIN, SERUM 7.7 g/dL (6.4-8.2)
== END 2018-04-09 00:44 | disposition home or self-care (01) ==
LOC: EMS 23:27
DX: F25.9 Schizoaffective disorder, unspecified (principal); F31.9 Bipolar disorder, unspecified; J45.909 Unspecified asthma, uncomplicated; F12.90 Cannabis use, unspecified, uncomplicated; F19.90 Other psychoactive substance use, unspecified, uncomplicated; Z98.890 Other specified postprocedural states; Z87.891 Personal history of nicotine dependence; Z88.8 Allergy status to other drugs, medicaments and biological substances
CPT/HCPCS: 36415; 80053; 85025; 99284; G0480

== ENCOUNTER 2018-04-10 10:07 | Emergency (ER) | payer OTHER ==
[~2018-04-10] VITALS: Ht 170.2 cm; Wt 136.4 kg
[~2018-04-10 10:07] MED LIST changes: -FLUO40CA7 PO
[2018-04-10 11:30] LABS: BASOPHILS % (AUTO) 0.5 % (0.0-2.0); EOSINOPHILS % (AUTO) 0.5 % (1.0-6.0); HEMATOCRIT 38.4 % (36-46); HEMOGLOBIN 13.1 g/dL (12.0-16.0); LYMPHOCYTES % (AUTO) 10.2 % (22.0-44.0); MEAN CORPUSCULAR HEMOGLOBIN 28.2 pg (26.0-34.0); MEAN CORPUSCULAR HGB CONC 34.1 G/dL (31.0-37.0); MEAN CORPUSCULAR VOLUME 83 fL (80-100); MONOCYTES # (AUTO) 0.8 K/uL (0.1-1.0); MONOCYTES % (AUTO) 8.4 % (2.0-9.0); NEUTROPHILS # (AUTO) 8.1 K/uL (1.8-7.7); NEUTROPHILS % (AUTO) 80.4 % (40.0-70.0); PLATELET COUNT (AUTO) 242 K/uL (150-450); RED BLOOD CELL COUNT(AUTO) 4.63 MIL/uL (4.00-5.20); RED CELL DISTRIBUTION WIDTH 13.9 % (11.5-14.5)
[2018-04-10 11:37] LABS: ANION GAP 9 mmol/L (8-16); CALCIUM, TOTAL 9.1 mg/dL (8.8-10.5); CARBON DIOXIDE 26 mmol/L (22-29); CHLORIDE 104 mmol/L (98-107); CREATININE 1.06 mg/dL (0.60-1.30); GLOMERULAR FILTR. RATE CALC > 60 mL/min (>60); GLUCOSE,RANDOM 104 mg/dL (70-110); POTASSIUM 4.2 mmol/L (3.5-5.1); SODIUM SERUM 139 mmol/L (136-145); UREA NITROGEN, BLOOD 16 mg/dL (7-18)
[2018-04-10 11:43] LABS: ALANINE AMINOTRANSFERASE 37 U/L (12-78); ALKALINE PHOSPHATASE 74 U/L (46-116); ASPARTATE AMINOTRANSFERASE 33 U/L (15-37); BILIRUBIN,TOTAL 0.5 mg/dL (0.1-1.0); TOTAL PROTEIN, SERUM 8.3 g/dL (6.4-8.2)
[2018-04-10 13:04] LABS: AMPHET/METH SCREEN,URINE POSITIVE (NEGATIVE); BARBITURATE SCREEN, URINE NEGATIVE (NEGATIVE); BENZODIAZEPINES SCREEN,URINE NEGATIVE (NEGATIVE); CANNABINOID SCREEN,URINE POSITIVE (NEGATIVE); COCAINE SCREEN,URINE NEGATIVE (NEGATIVE); METHADONE SCREEN, URINE NEGATIVE (NEGATIVE); OPIATE SCREEN,URINE NEGATIVE (NEGATIVE)
[2018-04-10 13:05] LABS: PHENCYCLIDINE SCREEN,URINE NEGATIVE (NEGATIVE)
[2018-04-10] MEDS ORDERED: LORazepam 2 MG TABLET PO ONE (14:45)
[2018-04-10 17:45] VITALS: BP 116/74
== END 2018-04-10 17:51 | disposition home or self-care (01) ==
LOC: EMS 10:08
DX: F20.9 Schizophrenia, unspecified (principal); F15.10 Other stimulant abuse, uncomplicated; J45.909 Unspecified asthma, uncomplicated; F31.9 Bipolar disorder, unspecified; F12.90 Cannabis use, unspecified, uncomplicated; F19.90 Other psychoactive substance use, unspecified, uncomplicated; Z87.891 Personal history of nicotine dependence; Z88.8 Allergy status to other drugs, medicaments and biological substances
CPT/HCPCS: 36415; 80053; 80307; 85025; 99285; G0480

== ENCOUNTER 2018-05-01 17:55 | Inpatient (IN) | payer OTHER ==
[~2018-05-01] VITALS: Ht 170.2 cm; Wt 131.0 kg
[2018-05-01] MEDS ORDERED: TIZA4TAB4 PO (18:07)
[2018-05-01] MEDS ORDERED: FLUO90CA4 PO (18:07)
[2018-05-01] MEDS ORDERED: GABA-531 PO (18:07)
[2018-05-01 18:18] LABS: GLUCOSE,POINT OF CARE 151 MG/DL (70-110)
[2018-05-01 18:46] LABS: BASOPHILS % (AUTO) 0.3 % (0.0-2.0); EOSINOPHILS % (AUTO) 0.8 % (1.0-6.0); HEMATOCRIT 35.1 % (36-46); LYMPHOCYTES # (AUTO) 2.3 K/uL (1.0-4.8); LYMPHOCYTES % (AUTO) 17.1 % (22.0-44.0); MEAN CORPUSCULAR HGB CONC 34.2 G/dL (31.0-37.0); MEAN CORPUSCULAR VOLUME 82 fL (80-100); MONOCYTES # (AUTO) 1.2 K/uL (0.1-1.0); MONOCYTES % (AUTO) 9.2 % (2.0-9.0); NEUTROPHILS # (AUTO) 9.6 K/uL (1.8-7.7); NEUTROPHILS % (AUTO) 72.6 % (40.0-70.0); PLATELET COUNT (AUTO) 215 K/uL (150-450); RED BLOOD CELL COUNT(AUTO) 4.29 MIL/uL (4.00-5.20); RED CELL DISTRIBUTION WIDTH 13.7 % (11.5-14.5)
[2018-05-01 19:14] LABS: PROTHROMBIN TIME 10.9 SEC (9.4-11.6)
[2018-05-01 19:19] LABS: ANION GAP 7 mmol/L (8-16); CALCIUM, TOTAL 8.9 mg/dL (8.8-10.5); CARBON DIOXIDE 29 mmol/L (22-29); CHLORIDE 102 mmol/L (98-107); CREATININE 1.28 mg/dL (0.60-1.30); GLOMERULAR FILTR. RATE CALC 49 mL/min (>60); GLUCOSE,RANDOM 163 mg/dL (70-110); POTASSIUM 3.8 mmol/L (3.5-5.1); SODIUM SERUM 138 mmol/L (136-145); UREA NITROGEN, BLOOD 12 mg/dL (7-18)
[2018-05-01 19:24] LABS: AMPHET/METH SCREEN,URINE POSITIVE (NEGATIVE); BARBITURATE SCREEN, URINE NEGATIVE (NEGATIVE); BENZODIAZEPINES SCREEN,URINE POSITIVE (NEGATIVE); CANNABINOID SCREEN,URINE POSITIVE (NEGATIVE); COCAINE SCREEN,URINE NEGATIVE (NEGATIVE); METHADONE SCREEN, URINE NEGATIVE (NEGATIVE); OPIATE SCREEN,URINE NEGATIVE (NEGATIVE); PHENCYCLIDINE SCREEN,URINE NEGATIVE (NEGATIVE)
[2018-05-01] MEDS ORDERED: AZITHROMYCIN 500 MG/NS 250 ML IV ONE (19:45)
[2018-05-01] MEDS ORDERED: CefTRIAXone SODIUM 1 GM in DEXTROSE 5%-WATER 10 ML IV ONE (19:45)
[2018-05-01 19:47] LABS: ALANINE AMINOTRANSFERASE 36 U/L (12-78); ALBUMIN 3.6 g/dL (3.4-5.0); ALKALINE PHOSPHATASE 64 U/L (46-116); ASPARTATE AMINOTRANSFERASE 39 U/L (15-37); BILIRUBIN,TOTAL 0.6 mg/dL (0.1-1.0); CREATINE KINASE, TOTAL ONLY 693 U/L (26-192); HCG,QUANTITATIVE < 1 mIU/mL (0-6); TOTAL PROTEIN, SERUM 7.3 g/dL (6.4-8.2)
[2018-05-01 19:54] LABS: APPEARANCE,URINE CLEAR (CLEAR); BILIRUBIN,URINE NEGATIVE (NEGATIVE); GLUCOSE, URINE (UA) NEGATIVE (NEGATIVE); KETONES,URINE NEGATIVE (NEGATIVE); LEUKOCYTE ESTERASE ,URINE NEGATIVE (NEGATIVE); NITRATE,URINE NEGATIVE (NEGATIVE); OCCULT BLOOD,URINE NEGATIVE (NEGATIVE); PROTEIN,URINE NEGATIVE (NEGATIVE); UROBILINOGEN,URINE 0.2 mg/dL (<=1.0)
[2018-05-01 21:55] LABS: SALICYLATE 2.1 mg/dL (2.8-20.0)
[2018-05-01 22:10] LABS: ACETAMINOPHEN < 2 mcg/mL (10-30)
[2018-05-02 01:05] VITALS: BP 113/70
[2018-05-02 04:50] VITALS: BP 115/79
[2018-05-02 07:38] VITALS: BP 106/51
[2018-05-02] MEDS ORDERED: ALBUTEROL SULFATE 2.5 MG/0.5 ML NEB SOLUTION NEB PRN (09:15)
[2018-05-02] MEDS ORDERED: IPRATROPIUM BROMIDE 0.5 MG/2.5 ML NEB SOLUTION NEB PRN (09:15)
[2018-05-02] MEDS ORDERED: ACETAMINOPHEN 325 MG TABLET PO PRN (09:15)
[2018-05-02] MEDS ORDERED: ONDANSETRON HCL 4 MG/2 ML VIAL IVP PRN (09:15)
[2018-05-02] MEDS ORDERED: MAGNESIUM HYDROXIDE SUSPENSION 30 ML UDCUP PO PRN (09:15)
[2018-05-02] MEDS ORDERED: MORPHINE SULFATE 4 MG/ML SYRINGE IVP PRN (09:15)
[2018-05-02] MEDS ORDERED: BISACODYL 10 MG RECTAL RECTAL SUPPOSITORY PR PRN (09:15)
[2018-05-02] MEDS ORDERED: HYDROCODONE/ACETAMINOPHEN 5-325 MG TABLET PO PRN (09:15)
[2018-05-02] MEDS ORDERED: ZOLPIDEM TARTRATE 5 MG TABLET PO PRN (09:15)
[2018-05-02] MEDS ORDERED: DiphenhydrAMINE HCL 50 MG/ML VIAL IM ONE (09:35)
[2018-05-02] MEDS ORDERED: HALOPERIDOL LACTATE 5 MG/ML VIAL ONE (09:35)
[2018-05-02] MEDS ORDERED: HALOPERIDOL LACTATE 5 MG/ML VIAL IM ONE (09:35)
[2018-05-02] MEDS ORDERED: LORazepam 2 MG/ML VIAL IM ONE (09:35)
[2018-05-02] MEDS ORDERED: LORazepam 2 MG/ML VIAL ONE (09:36)
[2018-05-02] MEDS ORDERED: DiphenhydrAMINE HCL 50 MG/ML VIAL ONE (09:36)
[2018-05-02 10:38] LABS: ACETAMINOPHEN < 2 mcg/mL (10-30); ALANINE AMINOTRANSFERASE 33 U/L (12-78); ALBUMIN 3.4 g/dL (3.4-5.0); ALKALINE PHOSPHATASE 66 U/L (46-116); ASPARTATE AMINOTRANSFERASE 29 U/L (15-37); BILIRUBIN,TOTAL 0.5 mg/dL (0.1-1.0); TOTAL PROTEIN, SERUM 7.1 g/dL (6.4-8.2)
[2018-05-02 11:48] VITALS: BP 107/61
[2018-05-02] MEDS ORDERED: HEPARIN SODIUM,PORCINE 5,000 UNITS/ML VIAL SQ SCH (16:00)
[2018-05-02] MEDS ORDERED: DOCUSATE SODIUM 100 MG CAPSULE PO SCH (21:00)
[2018-05-03] MEDS ORDERED: PANTOPRAZOLE SODIUM 40 MG/VIAL IVP SCH (09:00)
== END 2018-05-02 15:15 | DRG 817 ==
LOC: EMS 17:56 → 6N 05-02 01:18
PROVIDERS: ADMIT Hospitalist; ATTEND Hospitalist
DX: T42.6X2A Poisoning by other antiepileptic and sedative-hypnotic drugs, intentional self-harm, initial encounter (principal); J18.1 Lobar pneumonia, unspecified organism; F20.9 Schizophrenia, unspecified; F12.90 Cannabis use, unspecified, uncomplicated; F15.90 Other stimulant use, unspecified, uncomplicated; F17.210 Nicotine dependence, cigarettes, uncomplicated; F32.9 Major depressive disorder, single episode, unspecified; J45.909 Unspecified asthma, uncomplicated; T42.4X2A Poisoning by benzodiazepines, intentional self-harm, initial encounter; Y92.89 Other specified places as the place of occurrence of the external cause; Z79.899 Other long term (current) drug therapy; Z88.8 Allergy status to other drugs, medicaments and biological substances; Z91.5 Personal history of self-harm
CPT/HCPCS: 82248; 83605; 87040; 93005; 96365; 96375; G0378; G0480; G0481; J0456; J0696; J1200; J1630; J2060; J7060

== ENCOUNTER 2018-05-02 14:21 | Inpatient (IN) | payer MEDICAID ==
[~2018-05-02] VITALS: Ht 170.2 cm; Wt 129.7 kg
[~2018-05-02 14:21] MED LIST changes: +FLUO90CA4 PO; +GABA-531 PO; +TIZA4TAB4 PO
[2018-05-02] MEDS ORDERED: ZOLPIDEM TARTRATE 10 MG TABLET PO PRN (16:00)
[2018-05-02 16:29] VITALS: BP 136/75
[2018-05-02] MEDS: LORazepam 2 MG TABLET PO PRN (17:56)
[2018-05-02] MEDS ORDERED: PETROLATUM,WHITE 71 GM JELLY TP PRN (18:15)
[2018-05-02] MEDS ORDERED: IBUPROFEN 400 MG TABLET PO PRN (18:15)
[2018-05-02] MEDS ORDERED: GuaiFENesin/D-METHORPHAN [SUGAR-FREE] 200-20MG/10 ML SYRUP UDCUP PO PRN (18:15)
[2018-05-02] MEDS ORDERED: MAGNESIUM HYDROXIDE SUSPENSION 30 ML UDCUP PO PRN (18:15)
[2018-05-02] MEDS ORDERED: CloNIDine HCL 0.1 MG TABLET PO PRN (18:15)
[2018-05-02] MEDS ORDERED: NICOTINE 14 MG/24 HOUR PATCH TD PRN (18:15)
[2018-05-02] MEDS ORDERED: DOCUSATE SODIUM 100 MG CAPSULE PO PRN (18:15)
[2018-05-02] MEDS ORDERED: ONDANSETRON HCL 4 MG TABLET PO PRN (18:15)
[2018-05-02] MEDS ORDERED: LOPERAMIDE HCL 2 MG CAPSULE PO PRN (18:15)
[2018-05-02] MEDS ORDERED: ALBUTEROL SULFATE HFA 90 MCG/PUFF 8 GM INHALER IH PRN (18:15)
[2018-05-02] MEDS: HALOPERIDOL 5 MG TABLET PO PRN (19:21)
[2018-05-02] MEDS ORDERED: DiphenhydrAMINE HCL 50 MG/ML VIAL IM ONE (19:45)
[2018-05-03 04:51] VITALS: BP 127/94
[2018-05-03 06:59] LABS: BASOPHILS % (AUTO) 0.3 % (0.0-2.0); EOSINOPHILS % (AUTO) 1.7 % (1.0-6.0); HEMATOCRIT 35.6 % (36-46); HEMOGLOBIN 12.1 g/dL (12.0-16.0); LYMPHOCYTES # (AUTO) 2.2 K/uL (1.0-4.8); LYMPHOCYTES % (AUTO) 23.4 % (22.0-44.0); MEAN CORPUSCULAR HEMOGLOBIN 28.4 pg (26.0-34.0); MEAN CORPUSCULAR HGB CONC 34.1 G/dL (31.0-37.0); MEAN CORPUSCULAR VOLUME 83 fL (80-100); MONOCYTES # (AUTO) 0.9 K/uL (0.1-1.0); MONOCYTES % (AUTO) 9.8 % (2.0-9.0); NEUTROPHILS % (AUTO) 64.8 % (40.0-70.0); PLATELET COUNT (AUTO) 203 K/uL (150-450); RED BLOOD CELL COUNT(AUTO) 4.27 MIL/uL (4.00-5.20); RED CELL DISTRIBUTION WIDTH 13.6 % (11.5-14.5)
[2018-05-03 07:28] LABS: HEMOGLOBIN A1C 5.4 % (4.5-6.2)
[2018-05-03 07:38] LABS: ALANINE AMINOTRANSFERASE 30 U/L (12-78); ALBUMIN 3.1 g/dL (3.4-5.0); ALKALINE PHOSPHATASE 59 U/L (46-116); ANION GAP 5 mmol/L (8-16); ASPARTATE AMINOTRANSFERASE 20 U/L (15-37); BILIRUBIN,TOTAL 0.2 mg/dL (0.1-1.0); CALCIUM, TOTAL 8.5 mg/dL (8.8-10.5); CARBON DIOXIDE 29 mmol/L (22-29); CHLORIDE 104 mmol/L (98-107); CHOL/HDL RATIO 3.4 (3.9-5.7); CHOLESTEROL 143 mg/dL (131-200); CREATININE 0.94 mg/dL (0.60-1.30); FREE T4 (FREE THYROXINE) 1.13 ng/dL (0.76-1.46); GLOMERULAR FILTR. RATE CALC > 60 mL/min (>60); GLUCOSE,RANDOM 95 mg/dL (70-110); HCG,QUANTITATIVE < 1 mIU/mL (0-6); HDL CHOLESTEROL 42 mg/dL (40-60); LDL CHOL (CALC.) 79 mg/dL (0-130); POTASSIUM 3.8 mmol/L (3.5-5.1); SODIUM SERUM 138 mmol/L (136-145); THYROID STIMULATING HORMONE 0.68 uIU/mL (0.36-3.74); TOTAL PROTEIN, SERUM 6.2 g/dL (6.4-8.2); TRIGLYCERIDES 111 mg/dL (15-150); UREA NITROGEN, BLOOD 12 mg/dL (7-18)
[2018-05-03] MEDS: BECLOMETHASONE DIPR HFA 80 MCG/PUFF 10.6 GM INHALER IH SCH ×2 (09:00→17:19)
[2018-05-03] MEDS: LORazepam 2 MG TABLET PO PRN (12:52)
[2018-05-03] MEDS: FLUoxetine HCL 20 MG CAPSULE PO SCH (12:52)
[2018-05-03] MEDS: HALOPERIDOL 5 MG TABLET PO PRN (12:52)
[2018-05-03 14:26] VITALS: BP 105/65
[2018-05-03 16:32] VITALS: BP 106/66
[2018-05-04] MEDS: MAG HYDROX/AL HYDROX/SIMETH ES 30 ML SUSPENSION UDCUP PO PRN ×2 (00:19→21:54)
[2018-05-04 00:25] VITALS: BP 112/71
[2018-05-04] MEDS: LORazepam 2 MG TABLET PO PRN ×3 (00:26→17:05)
[2018-05-04] MEDS: HALOPERIDOL 5 MG TABLET PO PRN ×2 (00:26→17:05)
[2018-05-04] MEDS: FLUoxetine HCL 20 MG CAPSULE PO SCH (08:54)
[2018-05-04] MEDS: BECLOMETHASONE DIPR HFA 80 MCG/PUFF 10.6 GM INHALER IH SCH ×2 (08:54→17:04)
[2018-05-04] MEDS: ARIPiprazole 5 MG TABLET PO SCH (12:29)
[2018-05-04 17:09] VITALS: BP 113/86
[2018-05-05 00:05] VITALS: BP 115/78
[2018-05-05] MEDS: HALOPERIDOL 5 MG TABLET PO PRN (00:12)
[2018-05-05] MEDS: LORazepam 2 MG TABLET PO PRN (00:12)
[2018-05-05] MEDS: ARIPiprazole 5 MG TABLET PO SCH (08:22)
[2018-05-05] MEDS: BECLOMETHASONE DIPR HFA 80 MCG/PUFF 10.6 GM INHALER IH SCH (08:22)
[2018-05-05] MEDS: FLUoxetine HCL 20 MG CAPSULE PO SCH (08:22)
[2018-05-05 08:32] VITALS: BP 107/66
[2018-05-05] MEDS ORDERED: ARIP5TAB8 PO (09:13)
[2018-05-05] MEDS ORDERED: FLUO-191 PO (09:13)
[2018-05-05] MEDS: MAG HYDROX/AL HYDROX/SIMETH ES 30 ML SUSPENSION UDCUP PO PRN (09:19)
== END 2018-05-05 11:25 | disposition home or self-care (01) | DRG 750 ==
LOC: B3A 15:00
PROVIDERS: ADMIT Psychiatry & Neurology Child & Adolescent Psychiatry; ATTEND Psychiatry & Neurology Psychiatry
DX: F25.0 Schizoaffective disorder, bipolar type (principal); D64.9 Anemia, unspecified; F60.3 Borderline personality disorder; F12.90 Cannabis use, unspecified, uncomplicated; J45.909 Unspecified asthma, uncomplicated; F19.10 Other psychoactive substance abuse, uncomplicated; Z71.51 Drug abuse counseling and surveillance of drug abuser; Z79.899 Other long term (current) drug therapy; Z88.8 Allergy status to other drugs, medicaments and biological substances
CPT/HCPCS: 83036; 84436; 84439; 84443; 87081; J1200; J3230; J3535

== ENCOUNTER 2018-05-08 17:39 | Emergency (ER) | payer MEDICAID, OTHER ==
[~2018-05-08] VITALS: Ht 170.2 cm; Wt 129.0 kg
[~2018-05-08 17:39] MED LIST changes: -ALBU8HFA IH; -ARIP400S3 IM; +ARIP5TAB8 PO; +FLUO-191 PO; -FLUO90CA4 PO; -GABA-531 PO; -PROZ10 PO; -TIZA4TAB4 PO
[2018-05-08 20:46] VITALS: BP 125/64
== END 2018-05-08 21:59 | disposition home or self-care (01) ==
LOC: EMS 17:40
DX: S00.03XA Contusion of scalp, initial encounter (principal); F33.9 Major depressive disorder, recurrent, unspecified; J45.909 Unspecified asthma, uncomplicated; F31.9 Bipolar disorder, unspecified; F20.9 Schizophrenia, unspecified; F12.90 Cannabis use, unspecified, uncomplicated; F19.90 Other psychoactive substance use, unspecified, uncomplicated; Z87.891 Personal history of nicotine dependence; Z88.8 Allergy status to other drugs, medicaments and biological substances; Y04.0XXA Assault by unarmed brawl or fight, initial encounter; Y93.89 Activity, other specified; Y92.89 Other specified places as the place of occurrence of the external cause; Y99.8 Other external cause status
CPT/HCPCS: 70450; 72125

== ENCOUNTER 2018-07-24 00:41 | Inpatient (IN) | payer MEDICAID, OTHER ==
[~2018-07-24] VITALS: Ht 170.2 cm; Wt 133.4 kg
[2018-07-24] MEDS ORDERED: LORazepam 2 MG/ML VIAL IM ONE (01:00)
[2018-07-24] MEDS ORDERED: HALOPERIDOL LACTATE 5 MG/ML VIAL IM ONE (01:00)
[2018-07-24] MEDS ORDERED: DiphenhydrAMINE HCL 50 MG/ML VIAL IM ONE (01:00)
[2018-07-24 01:21] LABS: BASOPHILS % (AUTO) 0.6 % (0.0-2.0); EOSINOPHILS % (AUTO) 0.5 % (1.0-6.0); HEMOGLOBIN 12.9 g/dL (12.0-16.0); LYMPHOCYTES # (AUTO) 1.7 K/uL (1.0-4.8); MEAN CORPUSCULAR HEMOGLOBIN 28.3 pg (26.0-34.0); MEAN CORPUSCULAR VOLUME 83 fL (80-100); MONOCYTES # (AUTO) 0.9 K/uL (0.1-1.0); MONOCYTES % (AUTO) 10.4 % (2.0-9.0); NEUTROPHILS % (AUTO) 68.5 % (40.0-70.0); PLATELET COUNT (AUTO) 237 K/uL (150-450); RED BLOOD CELL COUNT(AUTO) 4.57 MIL/uL (4.00-5.20); RED CELL DISTRIBUTION WIDTH 13.8 % (11.5-14.5)
[2018-07-24 01:32] LABS: ANION GAP 15 mmol/L (8-16); CALCIUM, TOTAL 9.1 mg/dL (8.8-10.5); CARBON DIOXIDE 23 mmol/L (22-29); CHLORIDE 103 mmol/L (98-107); GLOMERULAR FILTR. RATE CALC > 60 mL/min (>60); GLUCOSE,RANDOM 82 mg/dL (70-110); POTASSIUM 3.2 mmol/L (3.5-5.1); SODIUM SERUM 141 mmol/L (136-145); UREA NITROGEN, BLOOD 13 mg/dL (7-18)
[2018-07-24 01:46] LABS: ALANINE AMINOTRANSFERASE 25 U/L (12-78); ALBUMIN 3.8 g/dL (3.4-5.0); ALKALINE PHOSPHATASE 69 U/L (46-116); ASPARTATE AMINOTRANSFERASE 15 U/L (15-37); BILIRUBIN,TOTAL 0.2 mg/dL (0.1-1.0); HCG,QUANTITATIVE < 1 mIU/mL (0-6); TOTAL PROTEIN, SERUM 7.8 g/dL (6.4-8.2)
[2018-07-24] MEDS ORDERED: ZOLPIDEM TARTRATE 10 MG TABLET PO PRN (04:00)
[2018-07-24] MEDS ORDERED: POTASSIUM CHLORIDE 20 MEQ ER TABLET PO ONE (05:15)
[2018-07-24 14:27] LABS: APPEARANCE,URINE CLEAR (CLEAR); BILIRUBIN,URINE NEGATIVE (NEGATIVE); GLUCOSE, URINE (UA) NEGATIVE (NEGATIVE); KETONES,URINE NEGATIVE (NEGATIVE); LEUKOCYTE ESTERASE ,URINE NEGATIVE (NEGATIVE); NITRATE,URINE NEGATIVE (NEGATIVE); OCCULT BLOOD,URINE NEGATIVE (NEGATIVE); PH,URINE 6.5 (5.0-8.0); PROTEIN,URINE NEGATIVE (NEGATIVE); UROBILINOGEN,URINE 0.2 mg/dL (<=1.0)
[2018-07-24 14:30] LABS: AMPHET/METH SCREEN,URINE POSITIVE (NEGATIVE); BARBITURATE SCREEN, URINE NEGATIVE (NEGATIVE); BENZODIAZEPINES SCREEN,URINE NEGATIVE (NEGATIVE); CANNABINOID SCREEN,URINE POSITIVE (NEGATIVE); COCAINE SCREEN,URINE NEGATIVE (NEGATIVE); METHADONE SCREEN, URINE NEGATIVE (NEGATIVE); OPIATE SCREEN,URINE NEGATIVE (NEGATIVE); PHENCYCLIDINE SCREEN,URINE NEGATIVE (NEGATIVE)
[2018-07-24] MEDS: LORazepam 2 MG TABLET PO PRN (20:12)
[2018-07-24 21:11] VITALS: BP 126/77
[2018-07-24] MEDS: HALOPERIDOL 5 MG TABLET PO PRN (21:11)
[2018-07-24] MEDS ORDERED: GuaiFENesin/D-METHORPHAN [SUGAR-FREE] 200-20MG/10 ML SYRUP UDCUP PO PRN (21:45)
[2018-07-24] MEDS ORDERED: ACETAMINOPHEN 325 MG TABLET PO PRN (21:45)
[2018-07-24] MEDS ORDERED: CloNIDine HCL 0.1 MG TABLET PO PRN (21:45)
[2018-07-24] MEDS ORDERED: MAGNESIUM HYDROXIDE SUSPENSION 30 ML UDCUP PO PRN (21:45)
[2018-07-24] MEDS ORDERED: PETROLATUM,WHITE 71 GM JELLY TP PRN (21:45)
[2018-07-24] MEDS ORDERED: LOPERAMIDE HCL 2 MG CAPSULE PO PRN (21:45)
[2018-07-24] MEDS ORDERED: DOCUSATE SODIUM 100 MG CAPSULE PO PRN (21:45)
[2018-07-24] MEDS ORDERED: ALBUTEROL SULFATE HFA 90 MCG/PUFF 8 GM INHALER IH PRN (21:45)
[2018-07-24] MEDS ORDERED: ONDANSETRON HCL 4 MG TABLET PO PRN (21:45)
[2018-07-24] MEDS ORDERED: IBUPROFEN 400 MG TABLET PO PRN (21:45)
[2018-07-24] MEDS ORDERED: NICOTINE 14 MG/24 HOUR PATCH TD PRN (21:45)
[2018-07-24] MEDS ORDERED: MAG HYDROX/AL HYDROX/SIMETH ES 30 ML SUSPENSION UDCUP PO PRN (21:45)
[2018-07-25] MEDS: LORazepam 2 MG TABLET PO PRN ×2 (03:01→19:15)
[2018-07-25 03:06] VITALS: BP 120/75
[2018-07-25 08:29] VITALS: BP 122/60
[2018-07-25] MEDS: BECLOMETHASONE DIPR HFA 80 MCG/PUFF 10.6 GM INHALER IH SCH ×2 (09:27→17:02)
[2018-07-25] MEDS: ARIPiprazole 10 MG TABLET PO SCH (12:29)
[2018-07-25] MEDS: FLUoxetine HCL 20 MG CAPSULE PO SCH (12:29)
[2018-07-25 17:22] VITALS: BP 121/76
[2018-07-25] MEDS: HALOPERIDOL 5 MG TABLET PO PRN (19:15)
[2018-07-25] MEDS ORDERED: HALOPERIDOL LACTATE 5 MG/ML VIAL IM ONE (19:45)
[2018-07-25] MEDS ORDERED: LORazepam 2 MG/ML VIAL IM ONE (19:45)
[2018-07-25] MEDS ORDERED: DiphenhydrAMINE HCL 50 MG/ML VIAL IM ONE (19:45)
[2018-07-25] MEDS ORDERED: DiphenhydrAMINE HCL 50 MG/ML VIAL ONE (19:47)
[2018-07-25] MEDS ORDERED: HALOPERIDOL LACTATE 5 MG/ML VIAL ONE (19:47)
[2018-07-25] MEDS ORDERED: LORazepam 2 MG/ML VIAL ONE (19:47)
[2018-07-26 01:25] VITALS: BP 122/77
[2018-07-26] MEDS: BECLOMETHASONE DIPR HFA 80 MCG/PUFF 10.6 GM INHALER IH SCH ×2 (09:07→16:47)
[2018-07-26] MEDS: ARIPiprazole 10 MG TABLET PO SCH (09:08)
[2018-07-26] MEDS: FLUoxetine HCL 20 MG CAPSULE PO SCH (09:08)
[2018-07-26 09:36] LABS: ALANINE AMINOTRANSFERASE 24 U/L (12-78); ALBUMIN 3.4 g/dL (3.4-5.0); ALKALINE PHOSPHATASE 65 U/L (46-116); ANION GAP 9 mmol/L (8-16); ASPARTATE AMINOTRANSFERASE 16 U/L (15-37); BILIRUBIN,TOTAL 0.3 mg/dL (0.1-1.0); CARBON DIOXIDE 27 mmol/L (22-29); CHLORIDE 102 mmol/L (98-107); CHOL/HDL RATIO 3.5 (3.9-5.7); CHOLESTEROL 149 mg/dL (131-200); CREATININE 0.88 mg/dL (0.60-1.30); GLOMERULAR FILTR. RATE CALC > 60 mL/min (>60); GLUCOSE,RANDOM 85 mg/dL (70-110); HDL CHOLESTEROL 42 mg/dL (40-60); LDL CHOL (CALC.) 84 mg/dL (0-130); POTASSIUM 3.8 mmol/L (3.5-5.1); SODIUM SERUM 138 mmol/L (136-145); TOTAL PROTEIN, SERUM 7.2 g/dL (6.4-8.2); TRIGLYCERIDES 117 mg/dL (15-150); UREA NITROGEN, BLOOD 17 mg/dL (7-18)
[2018-07-26 12:42] LABS: HEMOGLOBIN A1C 5.4 % (4.5-6.2)
[2018-07-26 16:50] VITALS: BP 104/54
[2018-07-26] MEDS: HALOPERIDOL 5 MG TABLET PO PRN (17:12)
[2018-07-26] MEDS: LORazepam 2 MG TABLET PO PRN (17:12)
[2018-07-27 01:00] VITALS: BP 114/73
[2018-07-27] MEDS: LORazepam 2 MG TABLET PO PRN ×3 (01:11→18:15)
[2018-07-27 08:09] VITALS: BP 100/65
[2018-07-27] MEDS: BECLOMETHASONE DIPR HFA 80 MCG/PUFF 10.6 GM INHALER IH SCH ×2 (09:10→17:57)
[2018-07-27] MEDS: ARIPiprazole 10 MG TABLET PO SCH (09:10)
[2018-07-27] MEDS: FLUoxetine HCL 20 MG CAPSULE PO SCH (09:10)
[2018-07-27] MEDS: HALOPERIDOL 5 MG TABLET PO PRN ×2 (11:39→18:15)
[2018-07-27 16:05] VITALS: BP 117/77
[2018-07-28 01:10] VITALS: BP 110/70
[2018-07-28 08:14] VITALS: BP 112/69
[2018-07-28] MEDS: ARIPiprazole 10 MG TABLET PO SCH (08:47)
[2018-07-28] MEDS: BECLOMETHASONE DIPR HFA 80 MCG/PUFF 10.6 GM INHALER IH SCH (08:47)
[2018-07-28] MEDS: FLUoxetine HCL 20 MG CAPSULE PO SCH (08:48)
== END 2018-07-28 12:15 | disposition home or self-care (01) | DRG 750 ==
LOC: EMS 00:41 → B3A 20:00
PROVIDERS: ADMIT Psychiatry & Neurology Psychiatry; ATTEND Psychiatry & Neurology Psychiatry
DX: F25.1 Schizoaffective disorder, depressive type (principal); R45.850 Homicidal ideations; R45.851 Suicidal ideations; D64.9 Anemia, unspecified; F12.90 Cannabis use, unspecified, uncomplicated; F15.90 Other stimulant use, unspecified, uncomplicated; F17.200 Nicotine dependence, unspecified, uncomplicated; Z71.6 Tobacco abuse counseling; F31.9 Bipolar disorder, unspecified; J45.909 Unspecified asthma, uncomplicated; Z78.1 Physical restraint status; Z91.14 Patient's other noncompliance with medication regimen; Z79.899 Other long term (current) drug therapy
CPT/HCPCS: 83036; 84443; 96372; G0480; J1200; J1630; J2060; J3535

== ENCOUNTER 2018-07-30 15:39 | Inpatient (IN) | payer MEDICAID ==
[~2018-07-30] VITALS: Ht 170.2 cm; Wt 135.9 kg
[2018-07-30] MEDS ORDERED: ARIP10TA8 PO (18:40)
[2018-07-30] MEDS ORDERED: ZOLPIDEM TARTRATE 10 MG TABLET PO PRN (18:45)
[2018-07-30] MEDS: HALOPERIDOL 5 MG TABLET PO PRN (18:54)
[2018-07-30] MEDS: LORazepam 2 MG TABLET PO PRN (18:54)
[2018-07-30 19:04] VITALS: BP 131/65
[2018-07-30] MEDS ORDERED: LOPERAMIDE HCL 2 MG CAPSULE PO PRN (19:15)
[2018-07-30] MEDS ORDERED: DOCUSATE SODIUM 100 MG CAPSULE PO PRN (19:15)
[2018-07-30] MEDS ORDERED: ONDANSETRON HCL 4 MG TABLET PO PRN (19:15)
[2018-07-30] MEDS ORDERED: GuaiFENesin/D-METHORPHAN [SUGAR-FREE] 200-20MG/10 ML SYRUP UDCUP PO PRN (19:15)
[2018-07-30] MEDS ORDERED: ACETAMINOPHEN 325 MG TABLET PO PRN (19:15)
[2018-07-30] MEDS ORDERED: ALBUTEROL SULFATE HFA 90 MCG/PUFF 8 GM INHALER IH PRN (19:15)
[2018-07-30] MEDS ORDERED: IBUPROFEN 400 MG TABLET PO PRN (19:15)
[2018-07-30] MEDS ORDERED: MAG HYDROX/AL HYDROX/SIMETH ES 30 ML SUSPENSION UDCUP PO PRN (19:15)
[2018-07-30] MEDS ORDERED: CloNIDine HCL 0.1 MG TABLET PO PRN (19:15)
[2018-07-30] MEDS ORDERED: PETROLATUM,WHITE 71 GM JELLY TP PRN (19:15)
[2018-07-30] MEDS ORDERED: MAGNESIUM HYDROXIDE SUSPENSION 30 ML UDCUP PO PRN (19:15)
[2018-07-31 02:17] VITALS: BP 138/68
[2018-07-31] MEDS: LORazepam 2 MG TABLET PO PRN ×3 (02:20→18:54)
[2018-07-31 08:22] LABS: BASOPHILS % (AUTO) 0.8 % (0.0-2.0); EOSINOPHILS % (AUTO) 1.1 % (1.0-6.0); HEMATOCRIT 38.1 % (36-46); HEMOGLOBIN 12.8 g/dL (12.0-16.0); LYMPHOCYTES # (AUTO) 1.7 K/uL (1.0-4.8); LYMPHOCYTES % (AUTO) 25.5 % (22.0-44.0); MEAN CORPUSCULAR HEMOGLOBIN 27.6 pg (26.0-34.0); MEAN CORPUSCULAR HGB CONC 33.5 G/dL (31.0-37.0); MEAN CORPUSCULAR VOLUME 82 fL (80-100); MONOCYTES # (AUTO) 0.8 K/uL (0.1-1.0); MONOCYTES % (AUTO) 11.3 % (2.0-9.0); NEUTROPHILS # (AUTO) 4.1 K/uL (1.8-7.7); NEUTROPHILS % (AUTO) 61.3 % (40.0-70.0); PLATELET COUNT (AUTO) 195 K/uL (150-450); RED BLOOD CELL COUNT(AUTO) 4.64 MIL/uL (4.00-5.20); RED CELL DISTRIBUTION WIDTH 13.9 % (11.5-14.5)
[2018-07-31 08:33] LABS: HEMOGLOBIN A1C 5.5 % (4.5-6.2)
[2018-07-31 08:34] VITALS: BP 100/57
[2018-07-31] MEDS: BECLOMETHASONE DIPR HFA 80 MCG/PUFF 10.6 GM INHALER IH SCH ×2 (08:52→17:00)
[2018-07-31] MEDS: HALOPERIDOL 5 MG TABLET PO PRN ×2 (08:52→18:54)
[2018-07-31 09:08] LABS: ALANINE AMINOTRANSFERASE 26 U/L (12-78); ALBUMIN 3.2 g/dL (3.4-5.0); ALKALINE PHOSPHATASE 64 U/L (46-116); ANION GAP 6 mmol/L (8-16); ASPARTATE AMINOTRANSFERASE 19 U/L (15-37); BILIRUBIN,TOTAL 0.2 mg/dL (0.1-1.0); CALCIUM, TOTAL 8.6 mg/dL (8.8-10.5); CARBON DIOXIDE 29 mmol/L (22-29); CHLORIDE 103 mmol/L (98-107); CHOL/HDL RATIO 3.6 (3.9-5.7); CHOLESTEROL 131 mg/dL (131-200); CREATININE 0.86 mg/dL (0.60-1.30); GLOMERULAR FILTR. RATE CALC > 60 mL/min (>60); GLUCOSE,RANDOM 89 mg/dL (70-110); HCG,QUANTITATIVE < 1 mIU/mL (0-6); HDL CHOLESTEROL 36 mg/dL (40-60); LDL CHOL (CALC.) 58 mg/dL (0-130); POTASSIUM 3.7 mmol/L (3.5-5.1); SODIUM SERUM 138 mmol/L (136-145); THYROID STIMULATING HORMONE 2.05 uIU/mL (0.36-3.74); TOTAL PROTEIN, SERUM 6.7 g/dL (6.4-8.2); TRIGLYCERIDES 183 mg/dL (15-150); UREA NITROGEN, BLOOD 15 mg/dL (7-18)
[2018-07-31] MEDS ORDERED: ARIPiprazole 10 MG TABLET PO SCH (11:00)
[2018-07-31] MEDS: PALIPERIDONE 6 MG ER TABLET PO SCH (14:07)
[2018-07-31] MEDS: FLUoxetine HCL 20 MG CAPSULE PO SCH (14:07)
[2018-07-31 16:10] VITALS: BP 109/66
[2018-08-01 00:06] VITALS: BP 128/84
[2018-08-01] MEDS: HALOPERIDOL 5 MG TABLET PO PRN ×4 (01:50→22:00)
[2018-08-01] MEDS: LORazepam 2 MG TABLET PO PRN ×4 (01:50→22:00)
[2018-08-01 08:11] VITALS: BP 114/71
[2018-08-01] MEDS: PALIPERIDONE 6 MG ER TABLET PO SCH (08:39)
[2018-08-01] MEDS: FLUoxetine HCL 20 MG CAPSULE PO SCH (08:39)
[2018-08-01] MEDS: BECLOMETHASONE DIPR HFA 80 MCG/PUFF 10.6 GM INHALER IH SCH ×2 (08:39→17:44)
[2018-08-01 16:05] VITALS: BP 116/66
[2018-08-02] MEDS: HALOPERIDOL 5 MG TABLET PO PRN (03:03)
[2018-08-02] MEDS: LORazepam 2 MG TABLET PO PRN ×2 (03:04→08:04)
[2018-08-02] MEDS: PALIPERIDONE 6 MG ER TABLET PO SCH (08:04)
[2018-08-02] MEDS: FLUoxetine HCL 20 MG CAPSULE PO SCH (08:04)
[2018-08-02] MEDS: BECLOMETHASONE DIPR HFA 80 MCG/PUFF 10.6 GM INHALER IH SCH (08:04)
[2018-08-02 08:16] VITALS: BP 114/71
[2018-08-02] MEDS ORDERED: PALI6 PO (15:41)
== END 2018-08-02 16:40 | disposition home or self-care (01) | DRG 750 ==
LOC: B3A 18:37
PROVIDERS: ADMIT Psychiatry & Neurology Child & Adolescent Psychiatry; ATTEND Psychiatry & Neurology Child & Adolescent Psychiatry
DX: F25.9 Schizoaffective disorder, unspecified (principal); D64.9 Anemia, unspecified; J45.909 Unspecified asthma, uncomplicated; E78.5 Hyperlipidemia, unspecified; F32.9 Major depressive disorder, single episode, unspecified; F19.10 Other psychoactive substance abuse, uncomplicated; F41.9 Anxiety disorder, unspecified; Z88.8 Allergy status to other drugs, medicaments and biological substances; Z71.51 Drug abuse counseling and surveillance of drug abuser
CPT/HCPCS: 83036; 84439; 84443; 87081; J3535

== ENCOUNTER 2018-09-11 13:08 | Inpatient (IN) | payer MEDICAID, OTHER ==
[~2018-09-11] VITALS: Ht 170.2 cm; Wt 95.3 kg
[~2018-09-11 13:08] MED LIST changes: -ARIP5TAB8 PO; +PALI6 PO
[2018-09-11 15:09] LABS: BASOPHILS % (AUTO) 0.6 % (0.0-2.0); EOSINOPHILS % (AUTO) 1.1 % (1.0-6.0); HEMATOCRIT 38.6 % (36-46); HEMOGLOBIN 13.1 g/dL (12.0-16.0); LYMPHOCYTES # (AUTO) 1.2 K/uL (1.0-4.8); LYMPHOCYTES % (AUTO) 17.8 % (22.0-44.0); MEAN CORPUSCULAR HEMOGLOBIN 27.3 pg (26.0-34.0); MEAN CORPUSCULAR HGB CONC 33.9 G/dL (31.0-37.0); MEAN CORPUSCULAR VOLUME 81 fL (80-100); MONOCYTES # (AUTO) 0.8 K/uL (0.1-1.0); MONOCYTES % (AUTO) 12.1 % (2.0-9.0); NEUTROPHILS # (AUTO) 4.4 K/uL (1.8-7.7); NEUTROPHILS % (AUTO) 68.4 % (40.0-70.0); PLATELET COUNT (AUTO) 214 K/uL (150-450); RED BLOOD CELL COUNT(AUTO) 4.79 MIL/uL (4.00-5.20); RED CELL DISTRIBUTION WIDTH 14.2 % (11.5-14.5)
[2018-09-11 15:20] LABS: ANION GAP 10 mmol/L (8-16); CALCIUM, TOTAL 9.3 mg/dL (8.8-10.5); CARBON DIOXIDE 25 mmol/L (22-29); CHLORIDE 102 mmol/L (98-107); CREATININE 1.27 mg/dL (0.60-1.30); GLOMERULAR FILTR. RATE CALC 49 mL/min (>60); GLUCOSE,RANDOM 105 mg/dL (70-110); POTASSIUM 4.1 mmol/L (3.5-5.1); SODIUM SERUM 137 mmol/L (136-145); UREA NITROGEN, BLOOD 12 mg/dL (7-18)
[2018-09-11 15:35] LABS: ALANINE AMINOTRANSFERASE 27 U/L (12-78); ALKALINE PHOSPHATASE 70 U/L (46-116); ASPARTATE AMINOTRANSFERASE 31 U/L (15-37); BILIRUBIN,TOTAL 0.4 mg/dL (0.1-1.0); HCG,QUANTITATIVE < 1 mIU/mL (0-6); THYROID STIMULATING HORMONE 1.51 uIU/mL (0.36-3.74); TOTAL PROTEIN, SERUM 7.9 g/dL (6.4-8.2)
[2018-09-11] MEDS ORDERED: HALOPERIDOL LACTATE 5 MG/ML VIAL IM ONE (16:15)
[2018-09-11] MEDS ORDERED: DiphenhydrAMINE HCL 50 MG/ML VIAL IM ONE (16:15)
[2018-09-11] MEDS ORDERED: LORazepam 2 MG/ML VIAL IM ONE (16:15)
[2018-09-11] MEDS ORDERED: IBUPROFEN 400 MG TABLET PO PRN (16:45)
[2018-09-11] MEDS ORDERED: ACETAMINOPHEN 325 MG TABLET PO PRN ×2 (16:45→21:30)
[2018-09-11] MEDS ORDERED: PNEUMOCOCCAL VACCINE POLYVALENT 0.5 ML VIAL [PPSV23] IM ONE (20:30)
[2018-09-11] MEDS ORDERED: ALBUTEROL SULFATE HFA 90 MCG/PUFF 8 GM INHALER IH PRN (21:30)
[2018-09-11] MEDS ORDERED: MAG HYDROX/AL HYDROX/SIMETH ES 30 ML SUSPENSION UDCUP PO PRN (21:30)
[2018-09-11] MEDS ORDERED: PETROLATUM,WHITE 71 GM JELLY TP PRN (21:30)
[2018-09-11] MEDS ORDERED: GuaiFENesin/D-METHORPHAN [SUGAR-FREE] 200-20MG/10 ML SYRUP UDCUP PO PRN (21:30)
[2018-09-11] MEDS ORDERED: CloNIDine HCL 0.1 MG TABLET PO PRN (21:30)
[2018-09-11] MEDS ORDERED: NICOTINE 14 MG/24 HOUR PATCH TD PRN (21:30)
[2018-09-11] MEDS ORDERED: ONDANSETRON HCL 4 MG TABLET PO PRN (21:30)
[2018-09-11] MEDS ORDERED: LOPERAMIDE HCL 2 MG CAPSULE PO PRN (21:30)
[2018-09-11] MEDS ORDERED: MAGNESIUM HYDROXIDE SUSPENSION 30 ML UDCUP PO PRN (21:30)
[2018-09-11] MEDS ORDERED: DOCUSATE SODIUM 100 MG CAPSULE PO PRN (21:30)
[2018-09-12 07:05] VITALS: BP 110/60
[2018-09-12] MEDS: LORazepam 2 MG TABLET PO PRN ×2 (07:25→20:32)
[2018-09-12] MEDS: QUEtiapine FUMARATE 100 MG TABLET PO PRN ×2 (07:25→17:06)
[2018-09-12 08:35] LABS: BASOPHILS % (AUTO) 0.6 % (0.0-2.0); EOSINOPHILS % (AUTO) 4.9 % (1.0-6.0); HEMATOCRIT 40.8 % (36-46); HEMOGLOBIN 13.7 g/dL (12.0-16.0); LYMPHOCYTES # (AUTO) 1.8 K/uL (1.0-4.8); LYMPHOCYTES % (AUTO) 29.1 % (22.0-44.0); MEAN CORPUSCULAR HEMOGLOBIN 27.6 pg (26.0-34.0); MEAN CORPUSCULAR HGB CONC 33.7 G/dL (31.0-37.0); MEAN CORPUSCULAR VOLUME 82 fL (80-100); MONOCYTES # (AUTO) 0.7 K/uL (0.1-1.0); MONOCYTES % (AUTO) 11.3 % (2.0-9.0); NEUTROPHILS # (AUTO) 3.4 K/uL (1.8-7.7); NEUTROPHILS % (AUTO) 54.1 % (40.0-70.0); PLATELET COUNT (AUTO) 216 K/uL (150-450); RED BLOOD CELL COUNT(AUTO) 4.98 MIL/uL (4.00-5.20); RED CELL DISTRIBUTION WIDTH 14.5 % (11.5-14.5)
[2018-09-12 09:18] LABS: HEMOGLOBIN A1C 5.6 % (4.5-6.2)
[2018-09-12 09:40] LABS: ALBUMIN 3.9 g/dL (3.4-5.0); BILIRUBIN,TOTAL 0.5 mg/dL (0.1-1.0); CALCIUM, TOTAL 9.3 mg/dL (8.8-10.5); CHOL/HDL RATIO 4.1 (3.9-5.7); CREATININE 1.07 mg/dL (0.60-1.30); THYROID STIMULATING HORMONE 1.9 uIU/mL (0.36-3.74); TOTAL PROTEIN, SERUM 7.9 g/dL (6.4-8.2)
[2018-09-12] MEDS: FLUoxetine HCL 20 MG CAPSULE PO SCH (10:24)
[2018-09-12] MEDS: PALIPERIDONE 6 MG ER TABLET PO SCH (10:24)
[2018-09-12 14:09] VITALS: BP 109/62
[2018-09-12 16:11] VITALS: BP 107/72
[2018-09-13 01:06] VITALS: BP 111/74
[2018-09-13] MEDS: QUEtiapine FUMARATE 100 MG TABLET PO PRN ×4 (03:05→21:44)
[2018-09-13 08:05] VITALS: BP 115/72
[2018-09-13] MEDS: PALIPERIDONE 6 MG ER TABLET PO SCH (08:21)
[2018-09-13] MEDS: FLUoxetine HCL 20 MG CAPSULE PO SCH (08:21)
[2018-09-13] MEDS: LORazepam 2 MG TABLET PO PRN (10:44)
[2018-09-13 16:17] VITALS: BP 105/53
[2018-09-13] MEDS: ZOLPIDEM TARTRATE 10 MG TABLET PO PRN (21:44)
[2018-09-14 04:50] VITALS: BP 113/68
[2018-09-14] MEDS: LORazepam 2 MG TABLET PO PRN ×4 (04:53→21:32)
[2018-09-14] MEDS: PALIPERIDONE 6 MG ER TABLET PO SCH (08:51)
[2018-09-14] MEDS: FLUoxetine HCL 20 MG CAPSULE PO SCH (08:51)
[2018-09-14] MEDS: QUEtiapine FUMARATE 100 MG TABLET PO PRN ×2 (10:23→17:31)
[2018-09-14 10:45] VITALS: BP 107/63
[2018-09-14 16:09] VITALS: BP 114/72
[2018-09-14] MEDS: ZOLPIDEM TARTRATE 10 MG TABLET PO PRN (21:20)
[2018-09-15] MEDS: QUEtiapine FUMARATE 100 MG TABLET PO PRN (01:43)
[2018-09-15 01:50] VITALS: BP 105/62
[2018-09-15 08:27] VITALS: BP 110/61
[2018-09-15] MEDS: PALIPERIDONE 6 MG ER TABLET PO SCH (08:40)
[2018-09-15] MEDS: FLUoxetine HCL 20 MG CAPSULE PO SCH (08:40)
[2018-09-15] MEDS: LORazepam 2 MG TABLET PO PRN (08:48)
[2018-09-15] MEDS ORDERED: PALI234D IM (12:09)
[2018-09-15] MEDS ORDERED: FLUO-191 PO (12:09)
[2018-09-15] MEDS ORDERED: PALIPERIDONE PALMITATE 234 MG/1.5 ML SYRINGE IM SCH (16:00)
[2018-09-15 16:10] VITALS: BP 125/84
[2018-09-16] MEDS ORDERED: NYSTATIN 15 GM POWDER BOTTLE TP SCH (09:00)
== END 2018-09-15 17:15 | disposition home or self-care (01) | DRG 750 ==
LOC: EMS 13:10 → B3A 17:27
DX: F25.0 Schizoaffective disorder, bipolar type (principal); R45.851 Suicidal ideations; D64.9 Anemia, unspecified; F60.3 Borderline personality disorder; F12.90 Cannabis use, unspecified, uncomplicated; F15.10 Other stimulant abuse, uncomplicated; F17.200 Nicotine dependence, unspecified, uncomplicated; J45.909 Unspecified asthma, uncomplicated; Z79.899 Other long term (current) drug therapy; Z91.5 Personal history of self-harm
CPT/HCPCS: 83036; 84443; 87081; G0480; J1200; J1630; J2060

== ENCOUNTER 2018-12-28 04:41 | Emergency (ER) | payer MEDICAID, OTHER ==
[~2018-12-28] VITALS: Ht 170.2 cm; Wt 138.6 kg
[~2018-12-28 04:41] MED LIST changes: -BECL10.62 IH; +DULO20CA30 PO; +FERR-89 PO; +PALI234D IM; -PALI6 PO
[2018-12-28 04:43] VITALS: BP 123/98
== END 2018-12-28 09:05 | disposition left against medical advice (07) ==
LOC: EMS 04:41
DX: T74.21XA Adult sexual abuse, confirmed, initial encounter (principal); J45.909 Unspecified asthma, uncomplicated; F31.9 Bipolar disorder, unspecified; F20.9 Schizophrenia, unspecified; F12.90 Cannabis use, unspecified, uncomplicated; F19.90 Other psychoactive substance use, unspecified, uncomplicated; Z87.891 Personal history of nicotine dependence; Z88.8 Allergy status to other drugs, medicaments and biological substances; Y92.89 Other specified places as the place of occurrence of the external cause

== ENCOUNTER 2020-02-23 16:03 | Inpatient (IN) | payer MEDICAID ==
[~2020-02-23] VITALS: Ht 170.2 cm; Wt 144.2 kg
[~2020-02-23 16:03] MED LIST changes: -DULO20CA30 PO; -FERR-89 PO
[2020-02-23] MEDS ORDERED: PALI234D IM (16:37)
[2020-02-23] MEDS ORDERED: FLUO-191 PO (16:37)
[2020-02-23] MEDS ORDERED: HALOPERIDOL 5 MG TABLET PO PRN (16:45)
[2020-02-23] MEDS ORDERED: PNEUMOCOCCAL VACCINE POLYVALENT 0.5 ML VIAL [PPSV23] IM ONE (17:00)
[2020-02-23] MEDS: LORazepam 2 MG TABLET PO PRN (20:17)
[2020-02-23 21:04] VITALS: BP 119/76
[2020-02-23] MEDS: ZOLPIDEM TARTRATE 10 MG TABLET PO PRN (21:11)
[2020-02-24 04:00] VITALS: BP 120/81
[2020-02-24] MEDS ORDERED: ONDANSETRON HCL 4 MG TABLET PO PRN (08:00)
[2020-02-24] MEDS ORDERED: ALBUTEROL SULFATE HFA 90 MCG/PUFF 8 GM INHALER IH PRN (08:00)
[2020-02-24] MEDS ORDERED: IBUPROFEN 400 MG TABLET PO PRN (08:00)
[2020-02-24] MEDS ORDERED: CloNIDine HCL 0.1 MG TABLET PO PRN (08:00)
[2020-02-24] MEDS ORDERED: MAG HYDROX/AL HYDROX/SIMETH ES 30 ML SUSPENSION UDCUP PO PRN (08:00)
[2020-02-24] MEDS ORDERED: DOCUSATE SODIUM 100 MG CAPSULE PO PRN (08:00)
[2020-02-24] MEDS ORDERED: ACETAMINOPHEN 325 MG TABLET PO PRN (08:00)
[2020-02-24] MEDS ORDERED: MAGNESIUM HYDROXIDE SUSPENSION 30 ML UDCUP PO PRN (08:00)
[2020-02-24] MEDS ORDERED: GuaiFENesin/D-METHORPHAN [SUGAR-FREE] 200-20MG/10 ML SYRUP UDCUP PO PRN (08:00)
[2020-02-24] MEDS ORDERED: LOPERAMIDE HCL 2 MG CAPSULE PO PRN (08:00)
[2020-02-24] MEDS ORDERED: NICOTINE 14 MG/24 HOUR PATCH TD PRN (08:00)
[2020-02-24] MEDS ORDERED: PETROLATUM,WHITE 28 GM JELLY TP PRN (08:00)
[2020-02-24 08:09] LABS: BASOPHILS % (AUTO) 0.7 % (0.0-2.0); EOSINOPHILS % (AUTO) 1.6 % (1.0-6.0); HEMATOCRIT 35.1 % (36-46); HEMOGLOBIN 11.8 g/dL (12.0-16.0); LYMPHOCYTES # (AUTO) 2.2 K/uL (1.0-4.8); LYMPHOCYTES % (AUTO) 28.3 % (22.0-44.0); MEAN CORPUSCULAR HEMOGLOBIN 27.9 pg (26.0-34.0); MEAN CORPUSCULAR HGB CONC 33.6 G/dL (31.0-37.0); MEAN CORPUSCULAR VOLUME 83 fL (80-100); MONOCYTES # (AUTO) 0.6 K/uL (0.1-1.0); MONOCYTES % (AUTO) 8.2 % (2.0-9.0); NEUTROPHILS # (AUTO) 4.9 K/uL (1.8-7.7); NEUTROPHILS % (AUTO) 61.2 % (40.0-70.0); PLATELET COUNT (AUTO) 201 K/uL (150-450); RED BLOOD CELL COUNT(AUTO) 4.22 MIL/uL (4.00-5.20); RED CELL DISTRIBUTION WIDTH 14.5 % (11.5-14.5)
[2020-02-24 08:25] LABS: HEMOGLOBIN A1C 5.4 % (3.8-5.6)
[2020-02-24 08:40] LABS: ALANINE AMINOTRANSFERASE 28 U/L (12-78); ALBUMIN 3.4 g/dL (3.4-5.0); ALKALINE PHOSPHATASE 60 U/L (46-116); ANION GAP 3 mmol/L (8-16); ASPARTATE AMINOTRANSFERASE 16 U/L (15-37); BILIRUBIN,TOTAL 0.2 mg/dL (0.1-1.0); CARBON DIOXIDE 31 mmol/L (22-29); CHLORIDE 102 mmol/L (98-107); CHOL/HDL RATIO 3.5 (3.9-5.7); CHOLESTEROL 151 mg/dL (131-200); CREATININE 1.02 mg/dL (0.60-1.30); GLOMERULAR FILTR. RATE CALC > 60 mL/min (>60); GLUCOSE,RANDOM 95 mg/dL (70-110); HCG,QUANTITATIVE < 1 mIU/mL (0-6); HDL CHOLESTEROL 43 mg/dL (40-60); LDL CHOL (CALC.) 76 mg/dL (0-130); POTASSIUM 4.1 mmol/L (3.5-5.1); SODIUM SERUM 136 mmol/L (136-145); THYROID STIMULATING HORMONE 3.15 uIU/mL (0.36-3.74); TRIGLYCERIDES 158 mg/dL (15-150); UREA NITROGEN, BLOOD 14 mg/dL (7-18)
[2020-02-24] MEDS: FLUoxetine HCL 20 MG CAPSULE PO SCH (12:21)
[2020-02-24] MEDS: LORazepam 2 MG TABLET PO PRN ×3 (12:24→22:11)
[2020-02-24 16:23] VITALS: BP 122/83
[2020-02-24] MEDS: GABAPENTIN 300 MG CAPSULE PO SCH (17:07)
[2020-02-24] MEDS: ZOLPIDEM TARTRATE 10 MG TABLET PO PRN (22:11)
[2020-02-25 05:14] VITALS: BP 126/84
[2020-02-25] MEDS: LORazepam 2 MG TABLET PO PRN ×2 (08:43→21:05)
[2020-02-25] MEDS: FLUoxetine HCL 20 MG CAPSULE PO SCH (08:43)
[2020-02-25] MEDS: GABAPENTIN 300 MG CAPSULE PO SCH ×2 (08:43→16:50)
[2020-02-25 08:46] VITALS: BP 124/82
[2020-02-25 19:48] VITALS: BP 111/60
[2020-02-26 02:06] VITALS: BP 104/68
[2020-02-26 08:31] VITALS: BP 119/71
[2020-02-26] MEDS: FLUoxetine HCL 20 MG CAPSULE PO SCH (08:39)
[2020-02-26] MEDS: LORazepam 2 MG TABLET PO PRN ×2 (08:39→20:44)
[2020-02-26] MEDS: GABAPENTIN 300 MG CAPSULE PO SCH ×2 (08:39→16:43)
[2020-02-26 16:13] VITALS: BP 132/73
[2020-02-26] MEDS: ZOLPIDEM TARTRATE 10 MG TABLET PO PRN (21:01)
[2020-02-27 02:29] VITALS: BP 127/74
[2020-02-27 08:26] VITALS: BP 120/76
[2020-02-27] MEDS: GABAPENTIN 300 MG CAPSULE PO SCH (08:45)
[2020-02-27] MEDS: FLUoxetine HCL 20 MG CAPSULE PO SCH (08:45)
[2020-02-27] MEDS ORDERED: GABA-1181 PO (11:50)
== END 2020-02-27 13:30 | disposition home or self-care (01) | DRG 750 ==
LOC: B3A 16:44
PROVIDERS: ADMIT Psychiatry & Neurology Psychiatry; ATTEND Psychiatry & Neurology Psychiatry
DX: F25.1 Schizoaffective disorder, depressive type (principal); R45.851 Suicidal ideations; D64.9 Anemia, unspecified; J45.909 Unspecified asthma, uncomplicated; Z87.891 Personal history of nicotine dependence; F11.90 Opioid use, unspecified, uncomplicated; Z88.8 Allergy status to other drugs, medicaments and biological substances; F10.10 Alcohol abuse, uncomplicated; F19.10 Other psychoactive substance abuse, uncomplicated; E78.5 Hyperlipidemia, unspecified; E66.9 Obesity, unspecified; Z68.42 Body mass index [BMI] 45.0-49.9, adult; Z59.0 Homelessness; Y90.9 Presence of alcohol in blood, level not specified
CPT/HCPCS: 83036; 84439; 84443